=== PATIENT | male | born 1995 | race American Indian/Alaskan Native ===

== ENCOUNTER 2020-05-07 16:41 | Emergency (ER) | payer OTHER ==
[2020-05-07 16:58] VITALS: BP 143/79
[2020-05-07] MEDS ORDERED: predniSONE 20 MG TAB PO ONE (21:28)
[2020-05-07] MEDS ORDERED: IPRATROPIUM/ALBUTEROL SULFATE 3 ML AMPUL.NEB IH ONE (21:28)
--- NOTE | 2020-05-07 22:26 | Emergency Department Report ---
ED Asthma HPI - General Chief Complaint: Adult Asthma Stated Complaint: ASTHMA PUI?: No Time Seen by Provider: 05/07/20 21:15 Source: patient Mode of arrival: Ambulatory Limitations: No Limitations - History of Present Illness Initial Comments: This is a 25-year-old male with a history of asthma presents the ED today with 2 days of dry intermittent coughing and complaining of labored breathing x1 week. Patient states that he is to use albuterol inhaler which is not helping. Patient denies any sick contact. Patient denies fever/chills/shortness of breath. MD Complaint: "asthma attack" -: days(s) (2) Asthma History: childhood onset Severity: mild Context: none known Associated Symptoms: dry cough - Related Data Current Asthma Therapy: inhaled bronchodilator Previous Rx's Medication Instructions Recorded Last Taken Type Albuterol Mdi (or & Nicu Only) 2 puff IH QID PRN #8.5 gram 05/07/20 Unknown Rx [ProAir HFA Inhaler] Benzonatate [Tessalon Perles] 100 mg PO Q8HR #30 capsule 05/07/20 Unknown Rx predniSONE [Deltasone] 20 mg PO QDAY #5 tab 05/07/20 Unknown Rx Allergies Allergy/AdvReac Type Severity Reaction Status Date / Time No Known Allergies Allergy Unverified 05/07/20 16:54 ED Review of Systems ROS: Stated complaint: ASTHMA Other details as noted in HPI Comment: All other systems reviewed and negative ED Past Medical Hx - Past Medical History Hx Asthma: Yes - Surgical History Additional Surgical History: Left shoulder, tonsilectomy, Adenoidectomy - Social History Smoking Status: Never Smoker Substance Use Type: None - Medications Home Medications: Home Medications Medication Instructions Recorded Confirmed Last Taken Type Albuterol Mdi (or & Nicu Only) 2 puff IH QID PRN #8.5 gram 05/07/20 Unknown Rx [ProAir HFA Inhaler] Benzonatate [Tessalon Perles] 100 mg PO Q8HR #30 capsule 05/07/20 Unknown Rx predniSONE [Deltasone] 20 mg PO QDAY #5 tab 05/07/20 Unknown Rx ED Physical Exam - General Limitations: No Limitations General appearance: alert, in no apparent distress - Head Head exam: Present: atraumatic, normocephalic - Eye Eye exam: Present: normal appearance - ENT ENT exam: Present: mucous membranes moist - Neck Neck exam: Present: normal inspection - Respiratory Respiratory exam: Present: normal lung sounds bilaterally. Absent: respiratory distress, wheezes, chest wall tenderness, accessory muscle use - Cardiovascular Cardiovascular Exam: Present: regular rate, normal rhythm. Absent: systolic murmur, diastolic murmur, rubs, gallop - GI/Abdominal GI/Abdominal exam: Present: soft, normal bowel sounds - Rectal Rectal exam: Present: deferred - Extremities Exam Extremities exam: Present: normal inspection - Back Exam Back exam: Present: normal inspection - Neurological Exam Neurological exam: Present: alert, oriented X3 - Psychiatric Psychiatric exam: Present: normal affect, normal mood - Skin Skin exam: Present: warm, dry, intact, normal color. Absent: rash ED Course Vital Signs 05/07/20 16:54 Temperature 98.8 F Pulse Rate 98 H Respiratory 22 Rate Blood Pressure 143/79 O2 Sat by Pulse 95 Oximetry ED Medical Decision Making - Radiology Data Radiology results: report reviewed, image reviewed CHEST 2 VIEWS INDICATION / CLINICAL INFORMATION: Cough, shortness of breath. COMPARISON: None available. FINDINGS: SUPPORT DEVICES: None. HEART / MEDIASTINUM: No significant abnormality. LUNGS / PLEURA: No significant pulmonary or pleural abnormality. No pneumothorax. ADDITIONAL FINDINGS: No significant additional findings. IMPRESSION: 1. No acute findings. Signer Name: Theo Lanza MD Signed: 05/07/2020 10:38 PM Workstation Name: [id number] Transcribed By: SHAVONNE Dictated By: Theo Lanza MD Electronically Authenticated By: Theo Lanza MD Signed Date/Time: 05/07/202237 - Medical Decision Making 25-year-old female presents with asthma exacerbation (Mild) ED course: Patient received a breathing treatment, prednisone, cough suppressant in the ED. Chest x-ray ordered, chest x-ray shows no acute findings. Patient had no respiratory distress in the ED. Post treatment evaluation: No wheezing heard, no use of accessory muscles, I discussed with the patient to follow up with her primary care physician. I discussed with the patient will be going home on with albuterol inhaler as well as nebulizer Vital signs are normalized, patient is saturation at 99% on room air. I discussed with the patient is symptoms worsen to return to ED immediately. Critical care attestation.: If time is entered above; I have spent that time in minutes in the direct care of this critically ill patient, excluding procedure time. ED Disposition Clinical Impression: Asthma exacerbation Disposition: DC-01 TO HOME OR SELFCARE Is pt being admited?: No Does the pt Need Aspirin: No Condition: Stable Instructions: Asthma (ED) Additional Instructions: Make sure to follow up with the primary care physician as discussed. Take all your medications as you've been prescribed. If you have any worsening symptoms or develop new symptoms please return to ED immediately. Prescriptions: predniSONE [Deltasone] 20 mg PO QDAY #5 tab Albuterol Mdi (or & Nicu Only) [ProAir HFA Inhaler] 2 puff IH QID PRN #8.5 gram PRN Reason: Shortness Of Breath Benzonatate [Tessalon Perles] 100 mg PO Q8HR #30 capsule Referrals: PRIMARY CARE, [Primary Care Provider] - 3-5 Days [facility] [Outside] - 3-5 Days [facility] [Outside] - 3-5 Days Forms: Work/School Release Form(ED) Time of Disposition: 23:20
--- NOTE | 2020-05-07 22:42 | XRay Report ---
CHEST 2 VIEWS INDICATION / CLINICAL INFORMATION: Cough, shortness of breath. COMPARISON: None available. FINDINGS: SUPPORT DEVICES: None. HEART / MEDIASTINUM: No significant abnormality. LUNGS / PLEURA: No significant pulmonary or pleural abnormality. No pneumothorax. ADDITIONAL FINDINGS: No significant additional findings. IMPRESSION: 1. No acute findings. Signer Name: Theo Lanza MD Signed: 05/07/2020 10:38 PM Workstation Name: [id number]
== END 2020-05-07 23:30 | disposition home or self-care (01) ==
LOC: ED 16:41
DX: J45.901 Unspecified asthma with (acute) exacerbation (principal); Z79.899 Other long term (current) drug therapy
CPT/HCPCS: 71046; 94640; 99283; J7512

== ENCOUNTER 2020-06-27 21:15 | Emergency (ER) | payer OTHER ==
[2020-06-27] MEDS ORDERED: dexAMETHasone 20 MG/5 ML VIAL IM ONE (21:18)
[2020-06-27] MEDS ORDERED: IPRATROPIUM/ALBUTEROL SULFATE 3 ML AMPUL.NEB IH ONE (21:18)
--- NOTE | 2020-06-27 21:18 | Emergency Department Report ---
Blank Doc - Documentation Documentation: This is a 25-year-old male that presents with asthma exacerbation. This initial assessment/diagnostic orders/clinical plan/treatment(s) is/are subject to change based on patient's health status, clinical progression and re- assessment by fellow clinical providers in the ED. Further treatment and workup at subsequent clinical providers discretion. Patient/guardians urged not to elope from the ED as their condition may be serious if not clinically assessed and managed. Initial orders include: 1- Patient sent to [facility] for further evaluation and treatment 2- breathing treatment
[2020-06-27 21:31] VITALS: BP 153/72
--- NOTE | 2020-06-27 21:48 | Emergency Department Report ---
ED Asthma HPI - General Chief Complaint: Adult Asthma Stated Complaint: DIFFICULTY BREATHING Time Seen by Provider: 06/27/20 21:17 Source: patient Mode of arrival: Ambulatory Limitations: No Limitations - History of Present Illness Initial Comments: Pt is a 25-year-old male with hx of asthma who presents for sob and wheezing x 3 days , states out of albuterol inhaler, there is no fever or chills, pt does endorse sore throat and congestion. Symptoms are rated at 4/10 , symptoms relieved by nothing, pain is exacerbated by environmental exposure. MD Complaint: wheezing - Related Data Previous Rx's Medication Instructions Recorded Last Taken Type Albuterol Mdi (or & Nicu Only) 2 puff IH QID PRN #8.5 gram 05/07/20 Unknown Rx [ProAir HFA Inhaler] Benzonatate [Tessalon Perles] 100 mg PO Q8HR #30 capsule 05/07/20 Unknown Rx predniSONE [Deltasone] 20 mg PO QDAY #5 tab 05/07/20 Unknown Rx Albuterol Mdi (or & Nicu Only) 2 puff IH QID PRN #8.5 gram 06/27/20 Unknown Rx [ProAir HFA Inhaler] Azithromycin 500 mg PO DAILY #5 tablet 06/27/20 Unknown Rx Dexamethasone [Decadron] 6 mg PO BID 3 Days #6 tablet 06/27/20 Unknown Rx Allergies Allergy/AdvReac Type Severity Reaction Status Date / Time No Known Allergies Allergy Unverified 05/07/20 16:54 ED Review of Systems ROS: Stated complaint: DIFFICULTY BREATHING Other details as noted in HPI Constitutional: denies: chills, fever Eyes: denies: eye pain, eye discharge, vision change ENT: denies: ear pain, throat pain Respiratory: cough, shortness of breath, wheezing Cardiovascular: denies: chest pain, palpitations Endocrine: no symptoms reported Gastrointestinal: denies: abdominal pain, nausea, vomiting, diarrhea Genitourinary: denies: urgency, dysuria Musculoskeletal: denies: back pain, joint swelling, arthralgia Skin: denies: rash, lesions Neurological: denies: headache, weakness, paresthesias Psychiatric: denies: anxiety, depression Hematological/Lymphatic: denies: easy bleeding, easy bruising ED Past Medical Hx - Past Medical History Previous Medical History?: Yes Hx Asthma: Yes - Surgical History Past Surgical History?: Yes Additional Surgical History: Left shoulder, tonsilectomy, Adenoidectomy - Social History Smoking Status: Never Smoker Substance Use Type: None - Medications Home Medications: Home Medications Medication Instructions Recorded Confirmed Last Taken Type Albuterol Mdi (or & Nicu Only) 2 puff IH QID PRN #8.5 gram 05/07/20 Unknown Rx [ProAir HFA Inhaler] Benzonatate [Tessalon Perles] 100 mg PO Q8HR #30 capsule 05/07/20 Unknown Rx predniSONE [Deltasone] 20 mg PO QDAY #5 tab 05/07/20 Unknown Rx Albuterol Mdi (or & Nicu Only) 2 puff IH QID PRN #8.5 gram 06/27/20 Unknown Rx [ProAir HFA Inhaler] Azithromycin 500 mg PO DAILY #5 tablet 06/27/20 Unknown Rx Dexamethasone [Decadron] 6 mg PO BID 3 Days #6 tablet 06/27/20 Unknown Rx ED Physical Exam - General Limitations: No Limitations General appearance: alert, in no apparent distress - Head Head exam: Present: atraumatic, normocephalic - Eye Eye exam: Present: normal appearance, EOMI Pupils: Present: normal accommodation - ENT ENT exam: Present: normal orophraynx, mucous membranes moist - Neck Neck exam: Present: normal inspection, full ROM. Absent: tenderness - Respiratory Respiratory exam: Present: wheezes. Absent: rales, rhonchi, stridor, chest wall tenderness, prolonged expiratory - Cardiovascular Cardiovascular Exam: Present: normal rhythm, tachycardia, normal heart sounds. Absent: systolic murmur, diastolic murmur, rubs, gallop - GI/Abdominal GI/Abdominal exam: Present: soft, normal bowel sounds. Absent: distended, tenderness, bruit, hernia - Rectal Rectal exam: Present: deferred - Extremities Exam Extremities exam: Present: normal inspection, full ROM, normal capillary refill. Absent: tenderness - Back Exam Back exam: Present: normal inspection, full ROM. Absent: tenderness, CVA tenderness (R), CVA tenderness (L) - Neurological Exam Neurological exam: Present: alert, oriented X3, CN II-XII intact, normal gait, reflexes normal - Psychiatric Psychiatric exam: Present: normal affect, normal mood - Skin Skin exam: Present: warm, dry, intact, normal color. Absent: rash ED Course Vital Signs 06/27/20 06/27/20 06/27/20 21:24 21:25 21:51 Temperature 99.5 F Pulse Rate 111 H Pulse Rate [ 90 Anterior Bilateral Throughout] Respiratory 18 Rate Respiratory 18 Rate [Anterior Bilateral Throughout] Blood Pressure 153/72 [Left] O2 Sat by Pulse 94 Oximetry - Reevaluation(s) Reevaluation #1: albuterol neb, decadron po, exp wheezes bilat upper lobes. rsp: 30, pt with nad . 06/27/20 21:50 06/27/20 21:50 ED Medical Decision Making - Medical Decision Making Patient now ambulatory in ED from room to bathroom to back to room without increased shortness of breath or wheezing. Symptoms improved, wheezing is resolved at this time. Patient will be DC'd to home with prescriptions. Patient will follow-up with primary care doctor for continued asthma management. Patient verbalizes agreement and understanding with discharge plan. Patient DC'd home in stable condition at this time. Critical care attestation.: If time is entered above; I have spent that time in minutes in the direct care of this critically ill patient, excluding procedure time. ED Disposition Clinical Impression: Asthma Qualifiers: Asthma severity: moderate Asthma persistence: persistent Asthma complication type: with acute exacerbation Qualified Code(s): J45.41 - Moderate persistent asthma with (acute) exacerbation Disposition: DC-01 TO HOME OR SELFCARE Is pt being admited?: No Does the pt Need Aspirin: No Condition: Stable Instructions: Asthma (ED), Asthma, Adult Prescriptions: Azithromycin 500 mg PO DAILY #5 tablet Dexamethasone [Decadron] 6 mg PO BID 3 Days #6 tablet Albuterol Mdi (or & Nicu Only) [ProAir HFA Inhaler] 2 puff IH QID PRN #8.5 gram PRN Reason: Shortness Of Breath Referrals: PORTER DAMIAN MD [Primary Care Provider] - 3-5 Days MECHE URBAN MD [Referring] - 3-5 Days Forms: Work/School Release Form(ED) Time of Disposition: 22:49
== END 2020-06-27 22:55 | disposition home or self-care (01) ==
LOC: ED 21:15
DX: J45.909 Unspecified asthma, uncomplicated (principal); Z90.89 Acquired absence of other organs; Z98.890 Other specified postprocedural states; Z79.899 Other long term (current) drug therapy
CPT/HCPCS: 94640; 96372; 99282; J1100; 94644

== ENCOUNTER 2020-08-22 23:29 | Emergency (ER) | payer SELFPAY ==
[2020-08-23] MEDS ORDERED: IPRATROPIUM/ALBUTEROL SULFATE 3 ML AMPUL.NEB IH ONE (00:39)
[2020-08-23] MEDS ORDERED: predniSONE 20 MG TAB PO ONE (00:39)
[2020-08-23] MEDS ORDERED: ALBUTEROL 2.5 MG/3 ML NEBU IH ONE (00:40)
[2020-08-23 00:48] VITALS: BP 117/69
--- NOTE | 2020-08-23 01:15 | Emergency Department Report ---
ED Shortness of Breath HPI - General Chief Complaint: Adult Asthma Stated Complaint: ASTHMA Source: patient Mode of arrival: Ambulatory Limitations: No Limitations - History of Present Illness Initial Comments: Patient is a 25-year-old -Hond[place] male with a history of obesity and asthma who presents to the ED with acute onset persistent shortness of breath, wheezing, persistent dry cough for the last 2 days. Patient states that he did not of his albuterol inhaler while on a trip to [place] with family. Patient states that his shortness of breath got worse about 2 hours ago while he was preparing go to sleep. Patient denies chest pain, dizziness, syncope, fever, chills, nasal and sinus congestion, sore throat, abdominal pain, change in vision, palpitations, nausea, vomiting and diarrhea. MD Complaint: shortness of breath, cough, "asthma attack" -: Sudden, days(s) (2) Radiation: back Pain Scale: 5 Quality: aching Consistency: intermittent Improves With: nothing Worsens With: nothing, coughing Known History Of: asthma Context: medication noncompliance Associated Symptoms: denies other symptoms, cough, sputum production Treatments Prior to Arrival: bronchodilator - Related Data Home Oxygen Therapy: No Previous Rx's Medication Instructions Recorded Last Taken Type Albuterol Mdi (or & Nicu Only) 2 puff IH QID PRN #8.5 gram 05/07/20 Unknown Rx [ProAir HFA Inhaler] Benzonatate [Tessalon Perles] 100 mg PO Q8HR #30 capsule 05/07/20 Unknown Rx predniSONE [Deltasone] 20 mg PO QDAY #5 tab 05/07/20 Unknown Rx Azithromycin 500 mg PO DAILY #5 tablet 06/27/20 Unknown Rx Dexamethasone [Decadron] 6 mg PO BID 3 Days #6 tablet 06/27/20 Unknown Rx ALBUTEROL NEB's [Proventil 0.083% 3 ml IH Q6H PRN #75 ml 08/23/20 Unknown Rx NEBS] Albuterol Mdi (or & Nicu Only) 2 puff IH QID PRN #8.5 gram 08/23/20 Unknown Rx [ProAir HFA Inhaler] Benzonatate [Tessalon Perles] 100 mg PO Q8HR #30 capsule 08/23/20 Unknown Rx methylPREDNISolone [Medrol 4MG 4 mg PO DAILY #21 tab.ds.pk 08/23/20 Unknown Rx DOSEPAK (21 tabs)] Allergies Allergy/AdvReac Type Severity Reaction Status Date / Time No Known Allergies Allergy Unverified 05/07/20 16:54 ED Review of Systems ROS: Stated complaint: ASTHMA Other details as noted in HPI Constitutional: denies: chills, fever Eyes: denies: eye pain, eye discharge, vision change ENT: denies: ear pain, throat pain Respiratory: cough, shortness of breath, wheezing Cardiovascular: denies: chest pain, palpitations Endocrine: no symptoms reported Gastrointestinal: denies: abdominal pain, nausea, diarrhea Genitourinary: denies: urgency, dysuria Musculoskeletal: denies: back pain, joint swelling, arthralgia Skin: denies: rash, lesions Neurological: denies: headache, weakness, paresthesias Psychiatric: denies: anxiety, depression Hematological/Lymphatic: denies: easy bleeding, easy bruising ED Past Medical Hx - Past Medical History Previous Medical History?: Yes Hx Asthma: Yes - Surgical History Past Surgical History?: Yes Additional Surgical History: Left shoulder, tonsilectomy, Adenoidectomy - Social History Smoking Status: Never Smoker Substance Use Type: None - Medications Home Medications: Home Medications Medication Instructions Recorded Confirmed Last Taken Type Albuterol Mdi (or & Nicu Only) 2 puff IH QID PRN #8.5 gram 05/07/20 Unknown Rx [ProAir HFA Inhaler] Benzonatate [Tessalon Perles] 100 mg PO Q8HR #30 capsule 05/07/20 Unknown Rx predniSONE [Deltasone] 20 mg PO QDAY #5 tab 05/07/20 Unknown Rx Azithromycin 500 mg PO DAILY #5 tablet 06/27/20 Unknown Rx Dexamethasone [Decadron] 6 mg PO BID 3 Days #6 tablet 06/27/20 Unknown Rx ALBUTEROL NEB's [Proventil 0.083% 3 ml IH Q6H PRN #75 ml 08/23/20 Unknown Rx NEBS] Albuterol Mdi (or & Nicu Only) 2 puff IH QID PRN #8.5 gram 08/23/20 Unknown Rx [ProAir HFA Inhaler] Benzonatate [Tessalon Perles] 100 mg PO Q8HR #30 capsule 08/23/20 Unknown Rx methylPREDNISolone [Medrol 4MG 4 mg PO DAILY #21 tab.ds.pk 08/23/20 Unknown Rx DOSEPAK (21 tabs)] ED Physical Exam - General Limitations: No Limitations General appearance: alert, in no apparent distress - Head Head exam: Present: atraumatic, normocephalic, normal inspection - Eye Eye exam: Present: normal appearance, PERRL, EOMI Pupils: Present: normal accommodation - ENT ENT exam: Present: normal exam, normal orophraynx, mucous membranes moist, TM's normal bilaterally, normal external ear exam - Neck Neck exam: Present: normal inspection, full ROM - Respiratory Respiratory exam: Present: normal lung sounds bilaterally, wheezes (Mildly diffuse coarse wheezes throughout). Absent: respiratory distress, chest wall tenderness, accessory muscle use, decreased breath sounds - Cardiovascular Cardiovascular Exam: Present: regular rate, normal rhythm, normal heart sounds. Absent: systolic murmur, diastolic murmur, rubs, gallop - GI/Abdominal GI/Abdominal exam: Present: soft, normal bowel sounds. Absent: distended, tenderness, guarding, hyperactive bowel sounds, hypoactive bowel sounds, organomegaly - Extremities Exam Extremities exam: Present: normal inspection, full ROM, normal capillary refill. Absent: pedal edema, joint swelling, calf tenderness - Back Exam Back exam: Present: normal inspection, full ROM. Absent: tenderness, CVA tenderness (R), CVA tenderness (L), muscle spasm, paraspinal tenderness - Neurological Exam Neurological exam: Present: alert, oriented X3, CN II-XII intact, normal gait, reflexes normal - Psychiatric Psychiatric exam: Present: normal affect, normal mood - Skin Skin exam: Present: warm, dry, intact, normal color. Absent: rash ED Course Vital Signs 08/23/20 08/23/20 00:38 01:03 Temperature 98.3 F Pulse Rate 95 H Pulse Rate [ 96 H Bilateral] Respiratory 20 Rate Respiratory 20 Rate [Bilateral ] Blood Pressure 117/69 O2 Sat by Pulse 97 Oximetry ED Medical Decision Making - Radiology Data Radiology results: report reviewed, image reviewed Findings [facility] [address] [place] [address] XRay Report Signed Patient: DENISE KEBEDE MR#: [id number] : 1995 Acct:[id number] Age/Sex: 25 / M ADM Date: 08/22/20 Loc: ED Attending Dr: Ordering Physician: URIEL PEREZ Date of Service: 08/23/20 Procedure(s): XR chest 1V ap Accession Number(s): [id number] cc: URIEL PEREZ Fluoro Time In Minutes: CHEST 1 VIEW INDICATION / CLINICAL INFORMATION: Cough, dyspnea. COMPARISON: 05/07/2020 FINDINGS: SUPPORT DEVICES: None. HEART / MEDIASTINUM: No significant abnormality. LUNGS / PLEURA: Interstitial markings are slightly prominent bilaterally but unchanged from prior exam. No areas of consolidation or pleural effusion.. No pneumothorax. ADDITIONAL FINDINGS: No significant additional findings. IMPRESSION: 1. Slight interstitial prominence bilaterally which appears to be chronic. 2. No acute pulmonary disease or significant interval change. Signer Name: Celeste Tucker MD Signed: 08/23/2020 1:10 AM Workstation Name: [id number] Transcribed By: Dictated By: Celeste Tucker MD Electronically Authenticated By: Celeste Tucker MD Signed Date/Time: 08/23/20109 DD/ 8 TD/TT: - Medical Decision Making This is a 25-year-old -Honduran male with a history of obesity and asthma who presents to the ED with acute onset persistent shortness of breath, wheezing, persistent dry cough for the last 2 days. Patient states that he did not of his albuterol inhaler while on a trip to [place] with family. Patient states that his shortness of breath got worse about 2 hours ago while he was preparing go to sleep. In the ED, patient is alert and oriented x3 and is not in any distress. Chest x-ray shows no acute cardiopulmonary abnormalities or pneumonitis. Patient received DuoNeb treatment and albuterol nebulizer treatment in the ED in addition to oral steroids prednisone. On reevaluation, patient's wheezing resolved medications. Patient oxygen saturation is 99% in room air. Patient will discharge home on medications with a refill of his nebulizers and steroids. Patient was advised to follow-up with his primary care physician in 3 to 5 days for reevaluation. Patient was also advised return to the ED immediately if symptoms get worse. - Differential Diagnosis asthma; bronchitis; pneumonia; URI Critical care attestation.: If time is entered above; I have spent that time in minutes in the direct care of this critically ill patient, excluding procedure time. ED Disposition Clinical Impression: Shortness of breath Asthmatic bronchitis with acute exacerbation Qualifiers: Asthma severity: mild Asthma persistence: intermittent Qualified Code(s): J45.21 - Mild intermittent asthma with (acute) exacerbation Disposition: TO HOME OR SELFCARE Is pt being admited?: No Does the pt Need Aspirin: No Condition: Stable Instructions: Shortness of Breath, Adult, [id number], Cough, Adult, [id number], Asthma, Adult, [id number] Additional Instructions: Chest x-ray shows no acute cardiopulmonary abnormalities or pneumonitis. Therefore take medications as advised, drink plenty of fluids and follow-up with your primary care physician in 7 to 10 days for reevaluation. Return to the ED immediately if symptoms get worse Prescriptions: methylPREDNISolone [Medrol 4MG DOSEPAK (21 tabs)] 4 mg PO DAILY #21 tab.ds.pk Albuterol Mdi (or & Nicu Only) [ProAir HFA Inhaler] 2 puff IH QID PRN #8.5 gram PRN Reason: Shortness Of Breath ALBUTEROL NEB's [Proventil 0.083% NEBS] 3 ml IH Q6H PRN #75 ml PRN Reason: Wheezing Benzonatate [Tessalon Perles] 100 mg PO Q8HR #30 capsule Referrals: [facility] [Provider Group] - 3-5 Days Time of Disposition: 02:00 Print Language: [place] CITIZ[place]
== END 2020-08-23 02:34 | disposition home or self-care (01) ==
LOC: ED 23:29
DX: J45.901 Unspecified asthma with (acute) exacerbation (principal); Z98.890 Other specified postprocedural states; Z79.899 Other long term (current) drug therapy
CPT/HCPCS: 71045; 94640; 99283; J7512; 94644

== ENCOUNTER 2020-09-18 09:38 | Emergency (ER) | payer OTHER ==
--- NOTE | 2020-09-18 09:53 | Emergency Department Report ---
ED Asthma HPI - General Stated Complaint: ASTHMA Time Seen by Provider: 09/18/20 09:48 - History of Present Illness Initial Comments: 25-year-old -[place] male presents to the emergency room reporting he is have asthma has been exacerbated for the last 2 weeks. Patient states is been using his inhaler which helps but it comes back. Patient denies any fever chills no chest pain. He does admit to chest congestion and mild shortness of breath. Patient states that he lives with people who smoke weed and cigarettes and that was part of his triggers. Patient states that he has been out of his nebulizer solution. Onset/Timin -: week(s) Asthma History: childhood onset Severity: mild Context: smoke exposure Associated Symptoms: denies: fever, chest pain, leg edema Treatments Prior to Arrival: inhaled bronchodilator - Related Data Current Asthma Therapy: inhaled bronchodilator Previous Rx's Medication Instructions Recorded Last Taken Type Albuterol Mdi (or & Nicu Only) 2 puff IH QID PRN #8.5 gram 05/07/20 Unknown Rx [ProAir HFA Inhaler] Benzonatate [Tessalon Perles] 100 mg PO Q8HR #30 capsule 05/07/20 Unknown Rx Azithromycin 500 mg PO DAILY #5 tablet 06/27/20 Unknown Rx Dexamethasone [Decadron] 6 mg PO BID 3 Days #6 tablet 06/27/20 Unknown Rx Benzonatate [Tessalon Perles] 100 mg PO Q8HR #30 capsule 08/23/20 Unknown Rx methylPREDNISolone [Medrol 4MG 4 mg PO DAILY #21 tab.ds.pk 08/23/20 Unknown Rx DOSEPAK (21 tabs)] ALBUTEROL NEB's [Proventil 0.083% 3 ml IH Q6H PRN #75 ml 09/18/20 Unknown Rx NEBS] Albuterol Mdi (or & Nicu Only) 2 puff IH QID PRN #8.5 gram 09/18/20 Unknown Rx [ProAir HFA Inhaler] predniSONE [Deltasone] 20 mg PO QDAY #5 tab 09/18/20 Unknown Rx Allergies Allergy/AdvReac Type Severity Reaction Status Date / Time No Known Allergies Allergy Unverified 05/07/20 16:54 ED Review of Systems ROS: Stated complaint: ASTHMA Other details as noted in HPI Comment: All other systems reviewed and negative ED Past Medical Hx - Past Medical History Hx Asthma: Yes - Surgical History Additional Surgical History: Left shoulder, tonsilectomy, Adenoidectomy - Social History Smoking Status: Never Smoker Substance Use Type: None - Medications Home Medications: Home Medications Medication Instructions Recorded Confirmed Last Taken Type Albuterol Mdi (or & Nicu Only) 2 puff IH QID PRN #8.5 gram 05/07/20 Unknown Rx [ProAir HFA Inhaler] Benzonatate [Tessalon Perles] 100 mg PO Q8HR #30 capsule 05/07/20 Unknown Rx Azithromycin 500 mg PO DAILY #5 tablet 06/27/20 Unknown Rx Dexamethasone [Decadron] 6 mg PO BID 3 Days #6 tablet 06/27/20 Unknown Rx Benzonatate [Tessalon Perles] 100 mg PO Q8HR #30 capsule 08/23/20 Unknown Rx methylPREDNISolone [Medrol 4MG 4 mg PO DAILY #21 tab.ds.pk 08/23/20 Unknown Rx DOSEPAK (21 tabs)] ALBUTEROL NEB's [Proventil 0.083% 3 ml IH Q6H PRN #75 ml 09/18/20 Unknown Rx NEBS] Albuterol Mdi (or & Nicu Only) 2 puff IH QID PRN #8.5 gram 09/18/20 Unknown Rx [ProAir HFA Inhaler] predniSONE [Deltasone] 20 mg PO QDAY #5 tab 09/18/20 Unknown Rx ED Physical Exam - General General appearance: alert, in no apparent distress - Head Head exam: Present: atraumatic, normocephalic - Eye Eye exam: Present: normal appearance - ENT ENT exam: Present: mucous membranes moist - Neck Neck exam: Present: normal inspection - Respiratory Respiratory exam: Present: normal lung sounds bilaterally. Absent: respiratory distress - Cardiovascular Cardiovascular Exam: Present: regular rate, normal rhythm. Absent: systolic murmur, diastolic murmur, rubs, gallop - GI/Abdominal GI/Abdominal exam: Present: soft, normal bowel sounds - Rectal Rectal exam: Present: deferred - Extremities Exam Extremities exam: Present: normal inspection - Back Exam Back exam: Present: normal inspection - Neurological Exam Neurological exam: Present: alert, oriented X3 - Psychiatric Psychiatric exam: Present: normal affect, normal mood - Skin Skin exam: Present: warm, dry, intact, normal color. Absent: rash ED Medical Decision Making - Medical Decision Making 25-year-old -[place] male presents to the emergency room reporting he is have asthma has been exacerbated for the last 2 weeks. Patient states is been using his inhaler which helps but it comes back. Patient denies any fever chills no chest pain. He does admit to chest congestion and mild shortness of breath. Patient states that he lives with people who smoke weed and cigarettes and that was part of his triggers. Patient states that he has been out of his nebulizer solution. Patient lung exam is within normal limits no wheezing or shortness of breath marky reciated. Patient be discharged home with a prescription for prednisone, nebulizer solution and a refill on his inhaler. Critical care attestation.: If time is entered above; I have spent that time in minutes in the direct care of this critically ill patient, excluding procedure time. ED Disposition Clinical Impression: Asthma Disposition: DC-01 TO HOME OR SELFCARE Is pt being admited?: No Does the pt Need Aspirin: No Condition: Stable Instructions: Asthma (ED), Asthma, Adult, [id number] Additional Instructions: Please complete your prednisone as prescribed. Use your nebulizer and inhaler as needed. Follow-up with your primary care provider. Prescriptions: predniSONE [Deltasone] 20 mg PO QDAY #5 tab Albuterol Mdi (or & Nicu Only) [ProAir HFA Inhaler] 2 puff IH QID PRN #8.5 gram PRN Reason: Shortness Of Breath ALBUTEROL NEB's [Proventil 0.083% NEBS] 3 ml IH Q6H PRN #75 ml PRN Reason: Wheezing Referrals: SITA ESTRADA MD [Staff Physician] - 3-5 Days Forms: Work/School Release Form(ED)
[2020-09-18 10:03] VITALS: BP 143/66
== END 2020-09-18 10:00 | disposition home or self-care (01) ==
LOC: ED 09:38
DX: J45.909 Unspecified asthma, uncomplicated (principal); Z90.89 Acquired absence of other organs; Z98.890 Other specified postprocedural states; Z79.2 Long term (current) use of antibiotics; Z79.899 Other long term (current) drug therapy
CPT/HCPCS: 99282

== ENCOUNTER 2020-09-27 00:01 | Emergency (ER) | payer OTHER ==
[2020-09-27] MEDS ORDERED: predniSONE 20 MG TAB PO ONE (00:40)
[2020-09-27] MEDS ORDERED: ALBUTEROL 2.5 MG/3 ML NEBU IH ONE (00:40)
--- NOTE | 2020-09-27 00:45 | Emergency Department Report ---
ED General Adult HPI - General Chief complaint: Adult Asthma Stated complaint: ALESSANDRA Source: patient Mode of arrival: Ambulatory Limitations: No Limitations - History of Present Illness Initial comments: pt is a 25 male who presents for wheezing and sob x 1 days, pt states hx of asthma , symptoms improve wtih albuterol nebulizer. pt denies cp, no diaphresis, pt no fever or chill, - Related Data Previous Rx's Medication Instructions Recorded Last Taken Type Albuterol Mdi (or & Nicu Only) 2 puff IH QID PRN #8.5 gram 05/07/20 Unknown Rx [ProAir HFA Inhaler] Benzonatate [Tessalon Perles] 100 mg PO Q8HR #30 capsule 05/07/20 Unknown Rx Azithromycin 500 mg PO DAILY #5 tablet 06/27/20 Unknown Rx Dexamethasone [Decadron] 6 mg PO BID 3 Days #6 tablet 06/27/20 Unknown Rx Benzonatate [Tessalon Perles] 100 mg PO Q8HR #30 capsule 08/23/20 Unknown Rx methylPREDNISolone [Medrol 4MG 4 mg PO DAILY #21 tab.ds.pk 08/23/20 Unknown Rx DOSEPAK (21 tabs)] ALBUTEROL NEB's [Proventil 0.083% 3 ml IH Q6H PRN #75 ml 09/18/20 Unknown Rx NEBS] Albuterol Mdi (or & Nicu Only) 2 puff IH QID PRN #8.5 gram 09/18/20 Unknown Rx [ProAir HFA Inhaler] predniSONE [Deltasone] 20 mg PO QDAY #5 tab 09/18/20 Unknown Rx Albuterol Mdi (or & Nicu Only) 2 puff IH QID PRN #8.5 gram 09/27/20 Unknown Rx [ProAir HFA Inhaler] predniSONE [Deltasone] 40 mg PO QDAY 5 Days #10 tab 09/27/20 Unknown Rx Allergies Allergy/AdvReac Type Severity Reaction Status Date / Time No Known Allergies Allergy Unverified 05/07/20 16:54 ED Review of Systems ROS: Stated complaint: ALESSANDRA Other details as noted in HPI Constitutional: denies: chills, fever Eyes: denies: eye pain, eye discharge, vision change ENT: as per HPI Respiratory: denies: cough, shortness of breath, wheezing Cardiovascular: denies: chest pain, palpitations Endocrine: no symptoms reported Gastrointestinal: as per HPI. denies: nausea, vomiting Genitourinary: denies: urgency, dysuria Musculoskeletal: denies: back pain, joint swelling, arthralgia Skin: denies: rash, lesions Neurological: denies: headache, weakness, paresthesias Psychiatric: denies: anxiety, depression Hematological/Lymphatic: denies: easy bleeding, easy bruising ED Past Medical Hx - Past Medical History Previous Medical History?: Yes Hx Asthma: Yes - Surgical History Past Surgical History?: Yes Additional Surgical History: Left shoulder, tonsilectomy, Adenoidectomy - Social History Smoking Status: Never Smoker Substance Use Type: Alcohol - Medications Home Medications: Home Medications Medication Instructions Recorded Confirmed Last Taken Type Albuterol Mdi (or & Nicu Only) 2 puff IH QID PRN #8.5 gram 05/07/20 Unknown Rx [ProAir HFA Inhaler] Benzonatate [Tessalon Perles] 100 mg PO Q8HR #30 capsule 05/07/20 Unknown Rx Azithromycin 500 mg PO DAILY #5 tablet 06/27/20 Unknown Rx Dexamethasone [Decadron] 6 mg PO BID 3 Days #6 tablet 06/27/20 Unknown Rx Benzonatate [Tessalon Perles] 100 mg PO Q8HR #30 capsule 08/23/20 Unknown Rx methylPREDNISolone [Medrol 4MG 4 mg PO DAILY #21 tab.ds.pk 08/23/20 Unknown Rx DOSEPAK (21 tabs)] ALBUTEROL NEB's [Proventil 0.083% 3 ml IH Q6H PRN #75 ml 09/18/20 Unknown Rx NEBS] Albuterol Mdi (or & Nicu Only) 2 puff IH QID PRN #8.5 gram 09/18/20 Unknown Rx [ProAir HFA Inhaler] predniSONE [Deltasone] 20 mg PO QDAY #5 tab 09/18/20 Unknown Rx Albuterol Mdi (or & Nicu Only) 2 puff IH QID PRN #8.5 gram 09/27/20 Unknown Rx [ProAir HFA Inhaler] predniSONE [Deltasone] 40 mg PO QDAY 5 Days #10 tab 09/27/20 Unknown Rx ED Physical Exam - General Limitations: No Limitations General appearance: alert, in no apparent distress - Head Head exam: Present: atraumatic, normocephalic - Eye Eye exam: Present: normal appearance, PERRL, EOMI Pupils: Present: normal accommodation - ENT ENT exam: Present: mucous membranes moist - Neck Neck exam: Present: normal inspection - Respiratory Respiratory exam: Present: normal lung sounds bilaterally, wheezes, rales, rhonchi, stridor, chest wall tenderness (anterior ). Absent: respiratory distress - Cardiovascular Cardiovascular Exam: Present: regular rate, normal rhythm. Absent: systolic murmur, diastolic murmur, rubs, gallop - GI/Abdominal GI/Abdominal exam: Present: soft, normal bowel sounds. Absent: distended, tenderness - Rectal Rectal exam: Present: deferred - Extremities Exam Extremities exam: Present: normal inspection - Back Exam Back exam: Present: full ROM, tenderness. Absent: normal inspection, CVA tenderness (R), CVA tenderness (L) - Neurological Exam Neurological exam: Present: alert, oriented X3, CN II-XII intact, normal gait - Psychiatric Psychiatric exam: Present: normal affect, normal mood - Skin Skin exam: Present: warm, dry, intact, normal color. Absent: rash ED Course Vital Signs 09/27/20 09/27/20 00:38 01:25 Temperature 98.2 F Pulse Rate 100 H Pulse Rate [ 100 H Bilateral] Respiratory 16 Rate Respiratory 22 Rate [Bilateral ] Blood Pressure 131/52 O2 Sat by Pulse 97 Oximetry ED Medical Decision Making - Radiology Data Radiology results: report reviewed, image reviewed no infiltrate no opacities - Medical Decision Making Symptoms are resolved after nebulizer treatment given in ED. Chest x-ray is normal no infiltrates no opacities. Plan DC to home will refill albuterol inhaler. Patient will follow up with primary care doctor in 2 to 3 days. Patient verbalized agreement and understanding with discharge plan. Patient DC' d home in stable condition at this time. Critical care attestation.: If time is entered above; I have spent that time in minutes in the direct care of this critically ill patient, excluding procedure time. ED Disposition Clinical Impression: Asthma Qualifiers: Asthma severity: mild Asthma persistence: intermittent Asthma complication type: with acute exacerbation Qualified Code(s): J45.21 - Mild intermittent asthma with (acute) exacerbation Disposition: DC-01 TO HOME OR SELFCARE Is pt being admited?: No Does the pt Need Aspirin: No Condition: Stable Instructions: Asthma (ED), Asthma, Adult Prescriptions: predniSONE [Deltasone] 40 mg PO QDAY 5 Days #10 tab Albuterol Mdi (or & Nicu Only) [ProAir HFA Inhaler] 2 puff IH QID PRN #8.5 gram PRN Reason: Shortness Of Breath Forms: Work/School Release Form(ED) Time of Disposition: 02:16
--- NOTE | 2020-09-27 01:15 | XRay Report ---
CHEST 2 VIEWS INDICATION / CLINICAL INFORMATION: sob. COMPARISON: 08/23/2020 FINDINGS: SUPPORT DEVICES: None. HEART / MEDIASTINUM: No significant abnormality. LUNGS / PLEURA: No significant pulmonary or pleural abnormality. No pneumothorax. ADDITIONAL FINDINGS: No significant additional findings. IMPRESSION: 1. No acute findings. Signer Name: Claude Zeng MD Signed: 09/27/2020 1:10 AM Workstation Name: [email or web address]
[2020-09-27 02:33] VITALS: BP 136/61
== END 2020-09-27 02:32 | disposition home or self-care (01) ==
LOC: ED 00:01
DX: J45.909 Unspecified asthma, uncomplicated (principal); Z90.89 Acquired absence of other organs; Z98.890 Other specified postprocedural states; Z79.2 Long term (current) use of antibiotics; Z79.899 Other long term (current) drug therapy
CPT/HCPCS: 71046; 94640; 99283; J7512; 94644

== ENCOUNTER 2021-03-02 16:26 | Emergency (ER) | payer OTHER ==
[2021-03-02 19:54] VITALS: BP 156/85
[2021-03-02] MEDS ORDERED: IPRATROPIUM 0.02% NEBU 2.5 ML IH ONE (20:02)
[2021-03-02] MEDS ORDERED: methylPREDNISolone Sod Succinate 125 MG/2 ML INJ IM ONE (20:02)
[2021-03-02] MEDS ORDERED: ALBUTEROL 2.5 MG/3 ML NEBU IH ONE (20:02)
--- NOTE | 2021-03-02 20:31 | XRay Report ---
CHEST 2 VIEWS INDICATION / CLINICAL INFORMATION: Dyspnea, asthma. COMPARISON: None available. FINDINGS: SUPPORT DEVICES: None. HEART / MEDIASTINUM: No significant abnormality. LUNGS / PLEURA: No significant pulmonary or pleural abnormality. No pneumothorax. ADDITIONAL FINDINGS: No significant additional findings. IMPRESSION: 1. No acute findings. Signer Name: Rashi Pendleton MD Signed: 03/02/2021 8:26 PM Workstation Name: [id number]
--- NOTE | 2021-03-02 20:55 | Emergency Department Report ---
ED Shortness of Breath HPI - General Chief Complaint: Adult Asthma Stated Complaint: ASTHMA Source: patient Mode of arrival: Ambulatory Limitations: No Limitations - History of Present Illness Initial Comments: Patient is a 26-year-old -[place] male with a history of asthma presents to the ED with acute onset persistent shortness of breath, persistent dry cough and sore throat for the last 2 days. Patient states that he has been using his albuterol inhaler at home up to about 6 hours ago when he ran out of his medication. Patient states that his symptoms were triggered by cigarette smoking at home where his girlfriend smokes cigarettes. Patient states that the shortness of breath, wheezing, chest tightness and dry cough got worse in the last 2 hours. Patient denies fever, chills, nausea, vomiting, dizziness, syncope, diarrhea, nasal and sinus congestion, abdominal pain, headache, back pain, dysuria, urinary frequency and urgency or palpitations. MD Complaint: shortness of breath, cough, "asthma attack" -: Sudden, days(s) (2) Severity: moderate Pain Scale: 5 Quality: other (Chest tightness) Consistency: constant Improves With: bronchodilators Known History Of: asthma Context: recent URI, allergen exposure (Cigarette smoke), smoke/fume exposure (Cigarette smoke) Associated Symptoms: cough Treatments Prior to Arrival: bronchodilator (Albuterol inhaler) - Related Data Home Oxygen Therapy: No Previous Rx's Medication Instructions Recorded Last Taken Type Albuterol Mdi (or & Nicu Only) 2 puff IH QID PRN #8.5 gram 05/07/20 Unknown Rx [ProAir HFA Inhaler] Benzonatate [Tessalon Perles] 100 mg PO Q8HR #30 capsule 05/07/20 Unknown Rx Azithromycin 500 mg PO DAILY #5 tablet 06/27/20 Unknown Rx Dexamethasone [Decadron] 6 mg PO BID 3 Days #6 tablet 06/27/20 Unknown Rx ALBUTEROL NEB's [Proventil 0.083% 3 ml IH Q6H PRN #75 ml 09/18/20 Unknown Rx NEBS] Albuterol Mdi (or & Nicu Only) 2 puff IH QID PRN #8.5 gram 09/18/20 Unknown Rx [ProAir HFA Inhaler] predniSONE [Deltasone] 20 mg PO QDAY #5 tab 09/18/20 Unknown Rx predniSONE [Deltasone] 40 mg PO QDAY 5 Days #10 tab 09/27/20 Unknown Rx Albuterol Mdi (or & Nicu Only) 2 puff IH QID PRN #8.5 gram 03/02/21 Unknown Rx [ProAir HFA Inhaler] Benzonatate [Tessalon Perles] 100 mg PO Q8HR #30 capsule 03/02/21 Unknown Rx Montelukast [Singulair] 10 mg PO QPM #30 tablet 03/02/21 Unknown Rx methylPREDNISolone [Medrol 4MG 4 mg PO DAILY #21 tab.ds.pk 03/02/21 Unknown Rx DOSEPAK (21 tabs)] Allergies Allergy/AdvReac Type Severity Reaction Status Date / Time No Known Allergies Allergy Unverified 05/07/20 16:54 ED Review of Systems ROS: Stated complaint: ASTHMA Other details as noted in HPI Constitutional: denies: chills, fever Eyes: denies: eye pain, eye discharge, vision change ENT: throat pain. denies: ear pain Respiratory: cough, shortness of breath, wheezing Cardiovascular: denies: chest pain, palpitations Endocrine: no symptoms reported Gastrointestinal: denies: abdominal pain, nausea, vomiting, diarrhea Genitourinary: denies: urgency, dysuria Musculoskeletal: denies: back pain, joint swelling, arthralgia Skin: denies: rash, lesions Neurological: denies: headache, weakness, paresthesias Psychiatric: denies: anxiety, depression Hematological/Lymphatic: denies: easy bleeding, easy bruising ED Past Medical Hx - Past Medical History Hx Asthma: Yes - Surgical History Additional Surgical History: Left shoulder, tonsilectomy, Adenoidectomy - Social History Smoking Status: Never Smoker Substance Use Type: None - Medications Home Medications: Home Medications Medication Instructions Recorded Confirmed Last Taken Type Albuterol Mdi (or & Nicu Only) 2 puff IH QID PRN #8.5 gram 05/07/20 Unknown Rx [ProAir HFA Inhaler] Benzonatate [Tessalon Perles] 100 mg PO Q8HR #30 capsule 05/07/20 Unknown Rx Azithromycin 500 mg PO DAILY #5 tablet 06/27/20 Unknown Rx Dexamethasone [Decadron] 6 mg PO BID 3 Days #6 tablet 06/27/20 Unknown Rx ALBUTEROL NEB's [Proventil 0.083% 3 ml IH Q6H PRN #75 ml 09/18/20 Unknown Rx NEBS] Albuterol Mdi (or & Nicu Only) 2 puff IH QID PRN #8.5 gram 09/18/20 Unknown Rx [ProAir HFA Inhaler] predniSONE [Deltasone] 20 mg PO QDAY #5 tab 09/18/20 Unknown Rx predniSONE [Deltasone] 40 mg PO QDAY 5 Days #10 tab 09/27/20 Unknown Rx Albuterol Mdi (or & Nicu Only) 2 puff IH QID PRN #8.5 gram 03/02/21 Unknown Rx [ProAir HFA Inhaler] Benzonatate [Tessalon Perles] 100 mg PO Q8HR #30 capsule 03/02/21 Unknown Rx Montelukast [Singulair] 10 mg PO QPM #30 tablet 03/02/21 Unknown Rx methylPREDNISolone [Medrol 4MG 4 mg PO DAILY #21 tab.ds.pk 03/02/21 Unknown Rx DOSEPAK (21 tabs)] ED Physical Exam - General Limitations: No Limitations General appearance: alert, in no apparent distress - Head Head exam: Present: atraumatic, normocephalic, normal inspection - Eye Eye exam: Present: normal appearance, PERRL, EOMI Pupils: Present: normal accommodation - ENT ENT exam: Present: normal exam, normal orophraynx, mucous membranes moist, TM's normal bilaterally, normal external ear exam - Neck Neck exam: Present: normal inspection, full ROM - Respiratory Respiratory exam: Present: wheezes (Mildly diffuse coarse wheezes throughout). Absent: respiratory distress, rales, rhonchi, chest wall tenderness, accessory muscle use, decreased breath sounds, prolonged expiratory - Cardiovascular Cardiovascular Exam: Present: regular rate, normal rhythm, normal heart sounds. Absent: systolic murmur, diastolic murmur, rubs, gallop - GI/Abdominal GI/Abdominal exam: Present: soft, normal bowel sounds. Absent: tenderness, guarding, rebound, hyperactive bowel sounds, hypoactive bowel sounds - Extremities Exam Extremities exam: Present: normal inspection, full ROM, normal capillary refill - Back Exam Back exam: Present: normal inspection, full ROM. Absent: tenderness, CVA tenderness (R), CVA tenderness (L), muscle spasm, paraspinal tenderness, vertebral tenderness - Neurological Exam Neurological exam: Present: alert, oriented X3, CN II-XII intact, normal gait, reflexes normal - Psychiatric Psychiatric exam: Present: normal affect, normal mood - Skin Skin exam: Present: warm, dry, intact, normal color. Absent: rash ED Course Vital Signs 03/02/21 03/02/21 19:50 20:45 Temperature 98.4 F Pulse Rate 94 H Pulse Rate [ 86 Anterior Bilateral Throughout] Respiratory 18 Rate Respiratory 20 Rate [Anterior Bilateral Throughout] Blood Pressure 156/85 O2 Sat by Pulse 90 Oximetry ED Medical Decision Making - Radiology Data Radiology results: report reviewed, image reviewed [facility] [address] [place] [address] XRay Report Signed Patient: DENISE KEBEDE MR#: [id number] : 1995 Acct:[id number] Age/Sex: 26 / M ADM Date: 03/02/21 Loc: ED Attending Dr: Ordering Physician: URIEL PEREZ Date of Service: 03/02/21 Procedure(s): XR chest routine 2V Accession Number(s): [id number] cc: URIEL PEREZ Fluoro Time In Minutes: CHEST 2 VIEWS INDICATION / CLINICAL INFORMATION: Dyspnea, asthma. COMPARISON: None available. FINDINGS: SUPPORT DEVICES: None. HEART / MEDIASTINUM: No significant abnormality. LUNGS / PLEURA: No significant pulmonary or pleural abnormality. No pneumothorax. ADDITIONAL FINDINGS: No significant additional findings. IMPRESSION: 1. No acute findings. Signer Name: Rashi Christianson MD Signed: 03/02/2021 8:26 PM Workstation Name: [id number] Transcribed By: CW Dictated By: AMENA CHRISTIANSON MD Electronically Authenticated By: AMENA CHRISTIANSON MD Signed Date/Time: 03/02/212025 DD/ 25 TD/TT: - Medical Decision Making This is a 26-year-old -[place] male with a history of asthma presents to the ED with acute onset persistent shortness of breath, persistent dry cough and sore throat for the last 2 days. Patient states that he has been using his albuterol inhaler at home up to about 6 hours ago when he ran out of his medication. Patient states that his symptoms were triggered by cigarette smoking at home where his girlfriend smokes cigarettes. Patient states that the shortness of breath, wheezing, chest tightness and dry cough got worse in the last 2 hours. In the ED, patient is alert and oriented x3 and is not in any distress, patient is hemodynamically stable but the oxygen saturation was significantly low of 90% in room air in triage. Patient received DuoNeb treatment for 1 hour in the ED. Chest x-ray shows no acute cardiopulmonary abnormalities or pneumonitis. Patient also received Solu-Medrol 125 mg intramuscular injection. On reevaluation, patient felt better, wheezing resolved, and the oxygen saturation improved significantly to 100% in room air. Patient was therefore discharged home with a prescription of albuterol inhaler, oral steroid Dosepak and cough medications and was advised to follow-up with his primary care physician in 5 to 7 days for reevaluation. Patient is advised return to the ED immediately if symptoms get worse. - Differential Diagnosis Asthma; bronchitis; pneumonia; URI; COVID-19 Critical care attestation.: If time is entered above; I have spent that time in minutes in the direct care of this critically ill patient, excluding procedure time. ED Disposition Clinical Impression: Acute bronchitis with asthma with acute exacerbation, Shortness of breath Disposition: DC-01 TO HOME OR SELFCARE Is pt being admited?: No Does the pt Need Aspirin: No Condition: Stable Instructions: Shortness of Breath, Adult, [id number], Cough, Adult, [id number], Acute Bronchitis, Adult, [id number], Asthma, Adult, [id number], Acute Bronchitis (ED) Additional Instructions: The chest x-ray shows no acute cardiopulmonary abnormalities or pneumonitis. Therefore take medication with food, drink plenty of fluids and follow-up with your primary care physician in 5 to 7 days for reevaluation. Return to the ED immediately if symptoms get worse. Prescriptions: methylPREDNISolone [Medrol 4MG DOSEPAK (21 tabs)] 4 mg PO DAILY #21 tab.ds.pk Albuterol Mdi (or & Nicu Only) [ProAir HFA Inhaler] 2 puff IH QID PRN #8.5 gram PRN Reason: Shortness Of Breath Montelukast [Singulair] 10 mg PO QPM #30 tablet Benzonatate [Tessalon Perles] 100 mg PO Q8HR #30 capsule Referrals: [facility] [Provider Group] - 3-5 Days Forms: Work/School Release Form(ED) Time of Disposition: 21:37 Print Language: GEORGIAN
== END 2021-03-02 22:36 | disposition home or self-care (01) ==
LOC: ED 16:26
DX: J45.901 Unspecified asthma with (acute) exacerbation (principal); R06.02 Shortness of breath; Z79.899 Other long term (current) drug therapy; Z98.890 Other specified postprocedural states
CPT/HCPCS: 71046; 94644; 96372; 99283; J2930

== ENCOUNTER 2021-03-04 19:45 | Emergency (ER) | payer SELFPAY ==
[2021-03-04] MEDS ORDERED: methylPREDNISolone Sod Succinate 125 MG/2 ML INJ IV ONE (20:12)
[2021-03-04] MEDS ORDERED: MAGNESIUM SULFATE 2 GM/50 ML BAG IV ONE (20:12)
[2021-03-04] MEDS ORDERED: LEVALBUTEROL 0.63 MG/3 ML NEBU IH ONE (20:13)
[2021-03-04] MEDS ORDERED: IPRATROPIUM 0.02% NEBU 2.5 ML IH ONE (20:14)
--- NOTE | 2021-03-04 20:17 | Emergency Department Report ---
ED Asthma HPI - General Chief Complaint: Dyspnea/Respdistress Stated Complaint: ALESSANDRA Time Seen by Provider: 03/04/21 20:07 Source: patient, EMS Mode of arrival: Wheelchair Limitations: No Limitations - History of Present Illness Initial Comments: Patient is 26-year-old male with history of asthma. Patient presented to the ER with a chief complaint of shortness of breath, dry cough and wheezing for the last 3 days. Patient was seen here 2 days ago. Patient stated that his symptoms are not improved. Patient denied any fever or chills. No chest pain. Patient denied any nausea or vomiting. MD Complaint: "asthma attack", shortness of breath, wheezing -: days(s) Asthma History: childhood onset, history of prior ED visit Severity: moderate Context: recent URI Associated Symptoms: dry cough Treatments Prior to Arrival: inhaled bronchodilator - Related Data Current Asthma Therapy: inhaled bronchodilator Previous Rx's Medication Instructions Recorded Last Taken Type Albuterol Mdi (or & Nicu Only) 2 puff IH QID PRN #8.5 gram 05/07/20 Unknown Rx [ProAir HFA Inhaler] Benzonatate [Tessalon Perles] 100 mg PO Q8HR #30 capsule 05/07/20 Unknown Rx Azithromycin 500 mg PO DAILY #5 tablet 06/27/20 Unknown Rx Dexamethasone [Decadron] 6 mg PO BID 3 Days #6 tablet 06/27/20 Unknown Rx ALBUTEROL NEB's [Proventil 0.083% 3 ml IH Q6H PRN #75 ml 09/18/20 Unknown Rx NEBS] Albuterol Mdi (or & Nicu Only) 2 puff IH QID PRN #8.5 gram 09/18/20 Unknown Rx [ProAir HFA Inhaler] predniSONE [Deltasone] 20 mg PO QDAY #5 tab 09/18/20 Unknown Rx predniSONE [Deltasone] 40 mg PO QDAY 5 Days #10 tab 09/27/20 Unknown Rx Albuterol Mdi (or & Nicu Only) 2 puff IH QID PRN #8.5 gram 03/02/21 Unknown Rx [ProAir HFA Inhaler] Benzonatate [Tessalon Perles] 100 mg PO Q8HR #30 capsule 03/02/21 Unknown Rx Montelukast [Singulair] 10 mg PO QPM #30 tablet 03/02/21 Unknown Rx methylPREDNISolone [Medrol 4MG 4 mg PO DAILY #21 tab.ds.pk 03/02/21 Unknown Rx DOSEPAK (21 tabs)] Allergies Allergy/AdvReac Type Severity Reaction Status Date / Time No Known Allergies Allergy Unverified 05/07/20 16:54 ED Review of Systems ROS: Stated complaint: ALESSANDRA Other details as noted in HPI Comment: All other systems reviewed and negative Constitutional: denies: chills, fever Respiratory: cough, shortness of breath, SOB with exertion, SOB at rest, wheezing Cardiovascular: denies: chest pain, palpitations Gastrointestinal: denies: abdominal pain, nausea, vomiting Musculoskeletal: denies: back pain Neurological: denies: headache, weakness, numbness, paresthesias, confusion ED Past Medical Hx - Past Medical History Previous Medical History?: Yes Hx Asthma: Yes - Surgical History Past Surgical History?: Yes Additional Surgical History: Left shoulder, tonsilectomy, Adenoidectomy - Social History Smoking Status: Never Smoker - Medications Home Medications: Home Medications Medication Instructions Recorded Confirmed Last Taken Type Albuterol Mdi (or & Nicu Only) 2 puff IH QID PRN #8.5 gram 05/07/20 Unknown Rx [ProAir HFA Inhaler] Benzonatate [Tessalon Perles] 100 mg PO Q8HR #30 capsule 05/07/20 Unknown Rx Azithromycin 500 mg PO DAILY #5 tablet 06/27/20 Unknown Rx Dexamethasone [Decadron] 6 mg PO BID 3 Days #6 tablet 06/27/20 Unknown Rx ALBUTEROL NEB's [Proventil 0.083% 3 ml IH Q6H PRN #75 ml 09/18/20 Unknown Rx NEBS] Albuterol Mdi (or & Nicu Only) 2 puff IH QID PRN #8.5 gram 09/18/20 Unknown Rx [ProAir HFA Inhaler] predniSONE [Deltasone] 20 mg PO QDAY #5 tab 09/18/20 Unknown Rx predniSONE [Deltasone] 40 mg PO QDAY 5 Days #10 tab 09/27/20 Unknown Rx Albuterol Mdi (or & Nicu Only) 2 puff IH QID PRN #8.5 gram 03/02/21 Unknown Rx [ProAir HFA Inhaler] Benzonatate [Tessalon Perles] 100 mg PO Q8HR #30 capsule 03/02/21 Unknown Rx Montelukast [Singulair] 10 mg PO QPM #30 tablet 03/02/21 Unknown Rx methylPREDNISolone [Medrol 4MG 4 mg PO DAILY #21 tab.ds.pk 03/02/21 Unknown Rx DOSEPAK (21 tabs)] ED Physical Exam - General Limitations: No Limitations General appearance: alert, in distress - Head Head exam: Present: atraumatic, normocephalic, normal inspection - Eye Eye exam: Present: normal appearance, PERRL - ENT ENT exam: Present: normal exam, normal orophraynx, mucous membranes moist - Neck Neck exam: Present: normal inspection, full ROM. Absent: tenderness, men ingismus - Respiratory Respiratory exam: Present: respiratory distress, wheezes, rhonchi, accessory muscle use, decreased breath sounds, prolonged expiratory. Absent: rales - Cardiovascular Cardiovascular Exam: Present: tachycardia - GI/Abdominal GI/Abdominal exam: Present: soft, normal bowel sounds. Absent: distended, tenderness, guarding, rebound, rigid, mass, bruit, pulsatile mass, hernia - Extremities Exam Extremities exam: Present: normal inspection, full ROM, normal capillary refill. Absent: tenderness, pedal edema, joint swelling, calf tenderness - Back Exam Back exam: Present: normal inspection, full ROM. Absent: CVA tenderness (R), CVA tenderness (L) - Neurological Exam Neurological exam: Present: alert, oriented X3, CN II-XII intact - Psychiatric Psychiatric exam: Present: normal mood - Skin Skin exam: Present: warm, intact, normal color ED Course Vital Signs 03/04/21 03/04/21 20:05 21:50 Temperature 98.2 F Pulse Rate 126 H Pulse Rate [ 104 H Anterior Bilateral Throughout] Respiratory 29 H Rate Respiratory 18 Rate [Anterior Bilateral Throughout] Blood Pressure 144/63 O2 Sat by Pulse 95 Oximetry - Reevaluation(s) Reevaluation #1: 03/04/21 23:14 Patient stated that he is feeling much better. On exam, mild diffuse wheezing. No acute respiratory distress. ED Medical Decision Making - Lab Data Result diagrams: 03/04/21 20:42 03/04/21 20:42 - Radiology Data Radiology results: report reviewed - Medical Decision Making Patient is 26-year-old male with history of asthma. Patient presented to the ER with a chief complaint of shortness of breath, dry cough and wheezing for the last 3 days. Patient was seen here 2 days ago. Patient stated that his symptoms are not improved. Patient denied any fever or chills. No chest pain. Patient denied any nausea or vomiting. Patient received Solu-Medrol, magnesium sulfate and epinephrine by EMS. Patient received Xopenex and Atrovent. Labs reviewed and showed leukocytosis, most likely related to his steroid or acute bronchitis. Chest x-ray is unremarkable. Patient already have prescription filled for albuterol and prednisone. Patient advised to follow-up with his primary care physician in the next 2 to 3 days and to return to the ER if he develop any new symptoms. Critical care attestation.: If time is entered above; I have spent that time in minutes in the direct care of this critically ill patient, excluding procedure time. ED Disposition Clinical Impression: Acute bronchitis with asthma with acute exacerbation Disposition: DC-01 TO HOME OR SELFCARE Is pt being admited?: No Condition: Stable Instructions: Acute Bronchitis (ED), Bronchospasm, Adult, Acute Bronchitis, Adult Referrals: [facility] [place] [Provider Group] - 3-5 Days
--- NOTE | 2021-03-04 20:53 | XRay Report ---
CHEST 1 VIEW 03/04/2021 7:43 PM INDICATION / CLINICAL INFORMATION: Asthma. COMPARISON: 03/02/2021. FINDINGS: SUPPORT DEVICES: None. HEART / MEDIASTINUM: No significant abnormality. LUNGS / PLEURA: No significant pulmonary or pleural abnormality. No pneumothorax. ADDITIONAL FINDINGS: No significant additional findings. IMPRESSION: No acute abnormality. Signer Name: Barron Herman MD Signed: 03/04/2021 8:49 PM Workstation Name: [id number]
[2021-03-04 21:24] LABS: Basophils # (Auto) 0.1 K/mm3 (0.0-0.1); Basophils % (Auto) 0.4 % (0.0-1.8); Eosinophils # (Auto) 0.4 K/mm3 (0.0-0.4); Eosinophils % (Auto) 2.3 % (0.0-4.3); Hemoglobin 14.3 gm/dl (11.8-15.2); Lymphocytes # (Auto) 1.9 K/mm3 (1.2-5.4); Lymphocytes % (Auto) 10.6 % (13.4-35.0); Mean Corpuscular HGB Conc 33 % (32-34); Mean Corpuscular Volume 76 fl (84-94); Monocytes % (Auto) 5.3 % (0.0-7.3); Platelet Count 310 K/mm3 (140-440); Red Blood Count 5.66 M/mm3 (3.65-5.03); Red Cell Distribution Width 16.6 % (13.2-15.2)
[2021-03-04 21:33] LABS: BUN/Creatinine Ratio 16; Blood Urea Nitrogen 13 mg/dL (9-20); Calcium 9.3 mg/dL (8.4-10.2); Hemolysis Index 10
[2021-03-05 02:07] VITALS: BP 131/72
== END 2021-03-05 02:36 | disposition home or self-care (01) ==
LOC: ED 19:45
DX: J45.901 Unspecified asthma with (acute) exacerbation (principal); J20.9 Acute bronchitis, unspecified; Z79.899 Other long term (current) drug therapy; Z98.890 Other specified postprocedural states
CPT/HCPCS: 36415; 71045; 80048; 85025; 94644

== ENCOUNTER 2021-09-17 00:20 | Inpatient (IN) | payer SELFPAY ==
[2021-09-17] MEDS ORDERED: ALBUTEROL 2.5 MG/3 ML NEBU IH ONE (03:37)
[2021-09-17] MEDS ORDERED: TERBUTALINE 1 MG/1 ML INJ SUB-Q ONE (03:37)
[2021-09-17] MEDS ORDERED: MAGNESIUM SULFATE 2 GM/50 ML BAG IV ONE (03:37)
[2021-09-17] MEDS ORDERED: IPRATROPIUM 0.02% NEBU 2.5 ML IH ONE (03:37)
[2021-09-17] MEDS ORDERED: methylPREDNISolone Sod Succinate 125 MG/2 ML INJ IV ONE (03:37)
[2021-09-17] MEDS ORDERED: SODIUM CHLORIDE 0.9% 1000 ML 1,000 ML IV ONE (04:03)
--- NOTE | 2021-09-17 04:06 | Emergency Department Report ---
HPI - General Chief Complaint: Dyspnea/Respdistress Time Seen by Provider: 09/17/21 03:37 - HPI HPI: Room 18 The patient is a 26-year-old male present with a chief complaint of shortness of breath. Patient has a history of asthma states for the past 3 to 4 days has had a cough occasionally productive of sputum. Patient states he feels as though his left lung is congested. Patient states he has been having worsening shortness of breath for the same period of time. In the ED the patient was found to be hypoxic to the low 80s on room air. Patient denies history of fever. Patient states she has been vaccinated against COVID however he states h e received his second dose less than 1 month ago ED Past Medical Hx - Past Medical History Previous Medical History?: Yes Hx Asthma: Yes - Surgical History Additional Surgical History: Left shoulder, tonsilectomy, Adenoidectomy - Family History Family history: no significant - Social History Smoking Status: Never Smoker Substance Use Type: None (Denies illicit drug use) - Medications Home Medications: Home Medications Medication Instructions Recorded Confirmed Last Taken Type Albuterol Mdi (or & Nicu Only) 2 puff IH QID PRN #8.5 gram 05/07/20 Unknown Rx [ProAir HFA Inhaler] Benzonatate [Tessalon Perles] 100 mg PO Q8HR #30 capsule 05/07/20 Unknown Rx Azithromycin 500 mg PO DAILY #5 tablet 06/27/20 Unknown Rx Dexamethasone [Decadron] 6 mg PO BID 3 Days #6 tablet 06/27/20 Unknown Rx ALBUTEROL NEB's [Proventil 0.083% 3 ml IH Q6H PRN #75 ml 09/18/20 Unknown Rx NEBS] Albuterol Mdi (or & Nicu Only) 2 puff IH QID PRN #8.5 gram 09/18/20 Unknown Rx [ProAir HFA Inhaler] predniSONE [Deltasone] 20 mg PO QDAY #5 tab 09/18/20 Unknown Rx predniSONE [Deltasone] 40 mg PO QDAY 5 Days #10 tab 09/27/20 Unknown Rx Albuterol Mdi (or & Nicu Only) 2 puff IH QID PRN #8.5 gram 03/02/21 Unknown Rx [ProAir HFA Inhaler] Benzonatate [Tessalon Perles] 100 mg PO Q8HR #30 capsule 03/02/21 Unknown Rx Montelukast [Singulair] 10 mg PO QPM #30 tablet 03/02/21 Unknown Rx methylPREDNISolone [Medrol 4MG 4 mg PO DAILY #21 tab.ds.pk 03/02/21 Unknown Rx DOSEPAK (21 tabs)] Azithromycin [Zithromax Z-MARIOLA] 250 mg PO DAILY 1 Days tab 03/04/21 Unknown Rx ED Review of Systems ROS: Stated complaint: ASTHMA Other details as noted in HPI Constitutional: denies: fever Eyes: denies: eye pain ENT: denies: throat pain Respiratory: cough, shortness of breath, wheezing Cardiovascular: denies: chest pain Endocrine: no symptoms reported Gastrointestinal: denies: vomiting Genitourinary: denies: dysuria Musculoskeletal: denies: back pain Physical Exam - Physical Exam Vital Signs: Vital Signs 09/17/21 09/17/21 03:30 03:37 Pulse Rate 136 H Pulse Rate [ 117 H Posterior Bilateral Throughout] Respiratory 20 Rate Respiratory 32 H Rate [Posterior Bilateral Throughout] Blood Pressure 133/92 [Right] O2 Sat by Pulse 88 Oximetry Physical Exam: GENERAL: The patient is well-developed well-nourished male lying on stretcher diaphoretic exhibiting increased work of breathing. [] HEENT: Normocephalic. Atraumatic. Extraocular motions are intact. Patient has moist mucous membranes. NECK: Supple. Trachea midline CHEST/LUNGS: Very tight, diffuse wheezing. Accessory muscle use HEART/CARDIOVASCULAR: Regular. There is tachycardia. There is no gallop rub or murmur. ABDOMEN: Abdomen is soft, nontender. Patient has normal bowel sounds. There is no abdominal distention. SKIN: The patient is diaphoretic NEURO: The patient is awake, alert, and oriented. The patient is cooperative. The patient has no focal neurologic deficits. MUSCULOSKELETAL: There is no evidence of acute injury. ED Course Vital Signs 09/17/21 09/17/21 03:30 03:37 Pulse Rate 136 H Pulse Rate [ 117 H Posterior Bilateral Throughout] Respiratory 20 Rate Respiratory 32 H Rate [Posterior Bilateral Throughout] Blood Pressure 133/92 [Right] O2 Sat by Pulse 88 Oximetry ED Medical Decision Making - Lab Data Result diagrams: 09/17/21 03:46 09/17/21 03:46 Laboratory Tests 09/17/21 09/17/21 09/17/21 03:46 03:46 03:46 WBC 22.7 H RBC 6.40 H Hgb 15.9 H Hct 48.6 H MCV 76 L MCH 25 L MCHC 33 RDW 15.8 H Plt Count 377 Lymph # (Auto) [employer] Sodium 143 Potassium 4.1 Chloride 105.8 Carbon Dioxide 21 L Anion Gap 20 BUN 16 Creatinine 0.9 Estimated GFR > 60 BUN/Creatinine Ratio 18 Glucose 109 H Lactic Acid 2.20 H* Calcium 9.0 NT-Pro-B Natriuret Pep 35.96 - Radiology Data Radiology results: report reviewed (Chest x-ray), image reviewed (Chest x-ray) interpreted by me: Chest x-ray-left lobe haziness. No definite focal infiltrates, no pneumothorax [facility] [address] [place] [address] XRay Report Signed Patient: DENISE KEBEDE MR#: [id number] : 1995 Acct:[id number] Age/Sex: 26 / M ADM Date: 09/17/21 Loc: ED Attending Dr: Ordering Physician: JESSE LUGO MD Date of Service: 09/17/21 Procedure(s): XR chest 1V ap Accession Number(s): [id number] cc: JESSE LUGO MD Fluoro Time In Minutes: CHEST 1 VIEW INDICATION / CLINICAL INFORMATION: Shortness of breath, hypoxia. COMPARISON: Chest x-ray 03/04/2021 FINDINGS: SUPPORT DEVICES: None. HEART / MEDIASTINUM: No significant abnormality. LUNGS / PLEURA: No significant pulmonary or pleural abnormality. No pneumothorax. ADDITIONAL FINDINGS: No significant additional findings. IMPRESSION: 1. No active cardiopulmonary disease. Signer Name: Ijeoma Cruz II, MD Signed: 09/17/2021 4:25 AM Workstation Name: [id number] Transcribed By: MADINA Dictated By: IJEOMA RCUZ II, MD Electronically Authenticated By: IJEOMA CRUZ II, MD Signed Date/Time: 09/17/21424 DD/ 4 TD/TT: Print Cancel - Differential Diagnosis Acute asthma exacerbation, pneumonia, bronchitis Critical care attestation.: If time is entered above; I have spent that time in minutes in the direct care of this critically ill patient, excluding procedure time. ED Disposition Clinical Impression: Shortness of breath, Acute asthma exacerbation, Productive cough, Hypoxia, Leukocytosis Disposition: 09 ADMITTED INPATIENT Is pt being admited?: Yes Does the pt Need Aspirin: No Condition: Fair Time of Disposition: 04:57 (Hospitalist called (Dr. Bar))
[2021-09-17 04:21] LABS: Hematocrit 48.6 % (35.5-45.6); Hemoglobin 15.9 gm/dl (11.8-15.2); Mean Corpuscular HGB Conc 33 % (32-34); Mean Corpuscular Volume 76 fl (84-94); Platelet Count 377 K/mm3 (140-440); Red Cell Distribution Width 15.8 % (13.2-15.2)
[2021-09-17 04:24] LABS: BUN/Creatinine Ratio 18; Blood Urea Nitrogen 16 mg/dL (9-20); Hemolysis Index 2
--- NOTE | 2021-09-17 04:30 | XRay Report ---
CHEST 1 VIEW INDICATION / CLINICAL INFORMATION: Shortness of breath, hypoxia. COMPARISON: Chest x-ray 03/04/2021 FINDINGS: SUPPORT DEVICES: None. HEART / MEDIASTINUM: No significant abnormality. LUNGS / PLEURA: No significant pulmonary or pleural abnormality. No pneumothorax. ADDITIONAL FINDINGS: No significant additional findings. IMPRESSION: 1. No active cardiopulmonary disease. Signer Name: Osiel Monge II, MD Signed: 09/17/2021 4:25 AM Workstation Name: [id number]
[2021-09-17] MEDS ORDERED: cefTRIAXone/NS 1 GM/50 ML 1 GM/50 ML BAG IV ONE (04:37)
[2021-09-17] MEDS ORDERED: AZITHROMYCIN/NS 500 MG/250 ML 500 MG/250 ML BAG IV ONE (04:57)
[2021-09-17 05:41] LABS: Anisocytosis 2+; Total Cells Counted 100
[2021-09-17 05:42] LABS: Ovalocytes Few; Platelet Estimate Consistent w Auto
[2021-09-17] MEDS ORDERED: ALBUTEROL 2.5 MG/3 ML NEBU IH PRN (05:42)
[2021-09-17] MEDS ORDERED: ACETAMINOPHEN 325 MG TAB PO PRN (05:42)
[2021-09-17] MEDS ORDERED: MORPHINE 2 MG/1 ML INJ IV PRN (05:42)
[2021-09-17] MEDS ORDERED: ONDANSETRON 4 MG/2 ML INJ IV PRN (05:42)
[2021-09-17] MEDS ORDERED: HYDROmorphone 1 MG/1 ML INJ IV PRN (05:42)
--- NOTE | 2021-09-17 05:50 | History and Physical Report ---
History of Present Illness Date of examination: 09/17/21 Date of admission: 09/17/21 Chief complaint: Shortness of breath History of present illness: 26-year-old male with history of asthma was brought to the emergency room because of shortness of breath. For the past 3 to 4 days has had a cough occasionally productive of sputum. Patient states he feels as though his left lung is congested. Patient states he has been having worsening shortness of breath for the same period of time. In the ED the patient was found to be hypoxic to the low 80s on room air. Patient denies history of fever. Patient states she has been vaccinated against COVID however he states he received his second dose less than 1 month ago In the emergency room patient WBC is 22.7, chest x-ray shows pneumonia as per the ER physician.'s were going to admit the patient I put the patient on pneumonia pathway antibiotic and neb treatment Past History Past Medical History: other (Asthma) Past Surgical History: Other (Left shoulder, tonsilectomy, Adenoidectomy) Medications and Allergies Allergies Allergy/AdvReac Type Severity Reaction Status Date / Time No Known Allergies Allergy Unverified 05/07/20 16:54 Home Medications Medication Instructions Recorded Confirmed Last Taken Type Albuterol Mdi (or & Nicu Only) 2 puff IH QID PRN #8.5 gram 05/07/20 Unknown Rx [ProAir HFA Inhaler] Benzonatate [Tessalon Perles] 100 mg PO Q8HR #30 capsule 05/07/20 Unknown Rx Azithromycin 500 mg PO DAILY #5 tablet 06/27/20 Unknown Rx Dexamethasone [Decadron] 6 mg PO BID 3 Days #6 tablet 06/27/20 Unknown Rx ALBUTEROL NEB's [Proventil 0.083% 3 ml IH Q6H PRN #75 ml 09/18/20 Unknown Rx NEBS] Albuterol Mdi (or & Nicu Only) 2 puff IH QID PRN #8.5 gram 09/18/20 Unknown Rx [ProAir HFA Inhaler] predniSONE [Deltasone] 20 mg PO QDAY #5 tab 09/18/20 Unknown Rx predniSONE [Deltasone] 40 mg PO QDAY 5 Days #10 tab 09/27/20 Unknown Rx Albuterol Mdi (or & Nicu Only) 2 puff IH QID PRN #8.5 gram 07/25/21 Unknown Rx [ProAir HFA Inhaler] Benzonatate [Tessalon Perles] 100 mg PO Q8HR #30 capsule 03/02/21 Unknown Rx Montelukast [Singulair] 10 mg PO QPM #30 tablet 03/02/21 Unknown Rx methylPREDNISolone [Medrol 4MG 4 mg PO DAILY #21 tab.ds.pk 03/02/21 Unknown Rx DOSEPAK (21 tabs)] Azithromycin [Zithromax Z-MARIOLA] 250 mg PO DAILY 1 Days tab 03/04/21 Unknown Rx Active Meds: Active Medications Acetaminophen (Acetaminophen 325 Mg Tab) 650 mg PO Q4H PRN PRN Reason: Pain MILD(1-3)/Fever >100.5/LEVINE Albuterol (Albuterol 2.5 Mg/3 Ml Nebu) 2.5 mg IH Q3HRT PRN PRN Reason: Shortness Of Breath Albuterol/Ipratropium (Ipratropium/Albuterol Sulfate 3 Ml Ampul.Neb) 1 ampul IH Q6HRT LAUREN Famotidine (Famotidine 20 Mg Tab) 20 mg PO BID LAUREN Heparin Sodium (Porcine) (Heparin 5,000 Unit/1 Ml Vial) 5,000 unit SUB-Q Q12HR LAUREN Hydromorphone HCl (Hydromorphone 1 Mg/1 Ml Inj) 0.5 mg IV Q3H PRN PRN Reason: Pain , Severe (7-10) Azithromycin (Zithromax/Ns) 500 mg in 250 mls @ 250 mls/hr IV ONCE ONE; Protocol Stop: 09/17/21 05:56 Ceftriaxone Sodium (Rocephin/Ns 2 Gm/100 Ml) 2 gm in 100 mls @ 200 mls/hr IV Q24H LAUREN; Protocol Azithromycin (Zithromax/Ns) 500 mg in 250 mls @ 250 mls/hr IV Q24H LAUREN; Protocol Morphine Sulfate (Morphine 2 Mg/1 Ml Inj) 2 mg IV Q4H PRN PRN Reason: Pain, Moderate (4-6) Ondansetron HCl (Ondansetron 4 Mg/2 Ml Inj) 4 mg IV Q8H PRN PRN Reason: Nausea And Vomiting Sodium Chloride (Sodium Chloride 0.9% 10 Ml Flush Syringe) 10 ml IV BID LAUREN Sodium Chloride (Sodium Chloride 0.9% 10 Ml Flush Syringe) 10 ml IV PRN PRN PRN Reason: LINE FLUSH Review of Systems Cardiovascular: shortness of breath, dyspnea on exertion Respiratory: cough, shortness of breath, dyspnea on exertion, wheezing Exam - Constitutional Vitals: Temp Pulse Resp BP Pulse Ox 117 H 20 133/92 88 09/17/21 04:31 09/17/21 04:31 09/17/21 03:37 09/17/21 03:37 General appearance: Present: no acute distress, well-nourished - EENT Eyes: Present: PERRL ENT: hearing intact, clear oral mucosa - Neck Neck: Present: supple, normal ROM - Respiratory Respiratory effort: normal Respiratory: bilateral: wheezing - Cardiovascular Heart Sounds: Present: S1 & S2. Absent: rub, click - Extremities Extremities: pulses symmetrical, No edema Peripheral Pulses: within normal limits - Abdominal General gastrointestinal: Present: soft, non-tender, non-distended, normal bowel sounds Male genitourinary: Present: normal - Integumentary Integumentary: Present: clear, warm, dry - Musculoskeletal Musculoskeletal: gait normal, strength equal bilaterally - Psychiatric Psychiatric: appropriate mood/affect, intact judgment & insight - Neurologic Neurologic: CNII-XII intact, moves all extremities Results - Labs CBC & Chem 7: 09/17/21 03:46 09/17/21 03:46 Labs: Laboratory Last Values WBC 22.7 K/mm3 (4.5-11.0) H 09/17/21 03:46 RBC 6.40 M/mm3 (3.65-5.03) H 09/17/21 03:46 Hgb 15.9 gm/dl (11.8-15.2) H 09/17/21 03:46 Hct 48.6 % (35.5-45.6) H 09/17/21 03:46 MCV 76 fl (84-94) L 09/17/21 03:46 MCH 25 pg (28-32) L 09/17/21 03:46 MCHC 33 % (32-34) 09/17/21 03:46 RDW 15.8 % (13.2-15.2) H 09/17/21 03:46 Plt Count 377 K/mm3 (140-440) 09/17/21 03:46 Lymph # (Auto) Rv Service Technician 09/17/21 03:46 Add Manual Diff Complete 09/17/21 03:46 Total Counted 100 09/17/21 03:46 Seg Neuts % (Manual) 62.0 % (40.0-70.0) 09/17/21 03:46 Band Neutrophils % 0 % 09/17/21 03:46 Lymphocytes % (Manual) 27.0 % (13.4-35.0) 09/17/21 03:46 Reactive Lymphs % (Man) 0 % 09/17/21 03:46 Monocytes % (Manual) 7.0 % (0.0-7.3) 09/17/21 03:46 Eosinophils % (Manual) 3.0 % (0.0-4.3) 09/17/21 03:46 Basophils % (Manual) 1.0 % (0.0-1.8) 09/17/21 03:46 Metamyelocytes % 0 % 09/17/21 03:46 Myelocytes % 0 % 09/17/21 03:46 Promyelocytes % 0 % 09/17/21 03:46 Blast Cells % 0 % 09/17/21 03:46 Nucleated RBC % Not Reportable 09/17/21 03:46 Seg Neutrophils # Man 14.1 K/mm3 (1.8-7.7) H 09/17/21 03:46 Band Neutrophils # 0.0 K/mm3 09/17/21 03:46 Lymphocytes # (Manual) 6.1 K/mm3 (1.2-5.4) H 09/17/21 03:46 Abs React Lymphs (Man) 0.0 K/mm3 09/17/21 03:46 Monocytes # (Manual) 1.6 K/mm3 (0.0-0.8) H 09/17/21 03:46 Eosinophils # (Manual) 0.7 K/mm3 (0.0-0.4) H 09/17/21 03:46 Basophils # (Manual) 0.2 K/mm3 (0.0-0.1) H 09/17/21 03:46 Metamyelocytes # 0.0 K/mm3 09/17/21 03:46 Myelocytes # 0.0 K/mm3 09/17/21 03:46 Promyelocytes # 0.0 K/mm3 09/17/21 03:46 Blast Cells # 0.0 K/mm3 09/17/21 03:46 WBC Morphology Not Reportable 09/17/21 03:46 Hypersegmented Neuts Not Reportable 09/17/21 03:46 Hyposegmented Neuts Not Reportable 09/17/21 03:46 Hypogranular Neuts Not Reportable 09/17/21 03:46 Smudge Cells Not Reportable 09/17/21 03:46 Toxic Granulation Not Reportable 09/17/21 03:46 Toxic Vacuolation Not Reportable 09/17/21 03:46 Dohle Bodies Not Reportable 09/17/21 03:46 Pelger-Huet Anomaly Not Reportable 09/17/21 03:46 Gretchen Rods Not Reportable 09/17/21 03:46 Platelet Estimate Consistent w auto 09/17/21 03:46 Clumped Platelets Not Reportable 09/17/21 03:46 Plt Clumps, EDTA Not Reportable 09/17/21 03:46 Large Platelets Not Reportable 09/17/21 03:46 Giant Platelets Not Reportable 09/17/21 03:46 Platelet Satelliting Not Reportable 09/17/21 03:46 Plt Morphology Comment Not Reportable 09/17/21 03:46 RBC Morphology Not Reportable 09/17/21 03:46 Dimorphic RBCs Not Reportable 09/17/21 03:46 Polychromasia Not Reportable 09/17/21 03:46 Hypochromasia Not Reportable 09/17/21 03:46 Poikilocytosis Not Reportable 09/17/21 03:46 Anisocytosis 2+ 09/17/21 03:46 Microcytosis 2+ 09/17/21 03:46 Macrocytosis Not Reportable 09/17/21 03:46 Spherocytes Not Reportable 09/17/21 03:46 Pappenheimer Bodies Not Reportable 09/17/21 03:46 Sickle Cells Not Reportable 09/17/21 03:46 Target Cells Not Reportable 09/17/21 03:46 Tear Drop Cells Not Reportable 09/17/21 03:46 Ovalocytes Few 09/17/21 03:46 Helmet Cells Not Reportable 09/17/21 03:46 [place] Bodies Not Reportable 09/17/21 03:46 [place] Rings Not Reportable 09/17/21 03:46 Mery Cells Not Reportable 09/17/21 03:46 Bite Cells Not Reportable 09/17/21 03:46 Crenated Cell Not Reportable 09/17/21 03:46 Elliptocytes Not Reportable 09/17/21 03:46 Acanthocytes (Spur) Not Reportable 09/17/21 03:46 Rouleaux Not Reportable 09/17/21 03:46 Hemoglobin C Crystals Not Reportable 09/17/21 03:46 Schistocytes Not Reportable 09/17/21 03:46 Malaria parasites Not Reportable 09/17/21 03:46 Rojelio Bodies Not Reportable 09/17/21 03:46 Hem Pathologist Commnt No 09/17/21 03:46 Sodium 143 mmol/L (137-145) 09/17/21 03:46 Potassium 4.1 mmol/L (3.6-5.0) 09/17/21 03:46 Chloride 105.8 mmol/L (98-107) 09/17/21 03:46 Carbon Dioxide 21 mmol/L (22-30) L 09/17/21 03:46 Anion Gap 20 mmol/L 09/17/21 03:46 BUN 16 mg/dL (9-20) 09/17/21 03:46 Creatinine 0.9 mg/dL (0.8-1.3) 09/17/21 03:46 Estimated GFR > 60 ml/min 09/17/21 03:46 BUN/Creatinine Ratio 18 % 09/17/21 03:46 Glucose 109 mg/dL (75-100) H 09/17/21 03:46 Lactic Acid 2.20 mmol/L (0.7-2.0) H* 09/17/21 03:46 Calcium 9.0 mg/dL (8.4-10.2) 09/17/21 03:46 NT-Pro-B Natriuret Pep 35.96 pg/mL (0-450) 09/17/21 03:46 - Imaging and Cardiology Chest x-ray: report reviewed Assessment and Plan VTE prophylaxis?: Chemical Plan of care discussed with patient/family: Yes - Patient Problems (1) Pneumonia Current Visit: Yes Status: Acute Plan to address problem: Admit the patient to the medical floor. Oxygen via nasal cannula 3 L/min. DuoNeb via nebulizer every 4 hours. Solu-Medrol 40 mg IV every 12 hours. Rocephin 2 g IV daily. Zithromax 500 mg IV daily. We do the blood culture and sputum culture. CBC in the morning. Consult pulmonary if needed (2) Acute asthma exacerbation Current Visit: Yes Status: Acute Plan to address problem: Oxygen via nasal cannula 3 L/min. DuoNeb via nebulizer every 4 hours. Solu- Medrol 40 mg IV every 12 hours. (3) Hypoxia Current Visit: Yes Status: Acute Plan to address problem: Oxygen via nasal cannula 3 L/min. DuoNeb via nebulizer every 4 hours. Solu- Medrol 40 mg IV every 12 hours. (4) Leukocytosis Current Visit: Yes Status: Acute Plan to address problem: Rocephin 2 g IV daily. Zithromax 500 mg IV daily. We do the blood culture and sputum culture. CBC in the morning. Consult pulmonary if needed (5) DVT prophylaxis Current Visit: Yes Status: Acute Plan to address problem: Heparin 5000 units subcu every 12 hours for DVT prophylaxis. Pepcid 20 mg p.o. twice daily for GI prophylaxis. Patient is a full code
[2021-09-17 07:19] VITALS: BP 112/57
[2021-09-17] MEDS ORDERED: IPRATROPIUM/ALBUTEROL SULFATE 3 ML AMPUL.NEB IH SCH (08:00)
[2021-09-17] MEDS ORDERED: methylPREDNISolone Sod Succinate 40 MG/1 ML INJ IV SCH (10:00)
[2021-09-17] MEDS ORDERED: HEPARIN 5,000 UNIT/1 ML VIAL SUB-Q SCH (10:00)
[2021-09-17] MEDS ORDERED: FAMOTIDINE 20 MG TAB PO SCH (10:00)
--- NOTE | 2021-09-17 20:39 | Discharge Summary ---
Providers - Providers Date of Admission: 09/17/21 05:42 Attending physician: AZRA ALBA MD Primary care physician: HORTENCIA WELLS Hospitalization Condition: Stable Hospital course: 26-year-old male with history of asthma was brought to the emergency room because of shortness of breath. For the past 3 to 4 days has had a cough occasionally productive of sputum. Patient states he feels as though his left lung is congested. Patient states he has been having worsening shortness of breath for the same period of time. In the ED the patient was found to be hypoxic to the low 80s on room air. Patient denies history of fever. Patient states she has been vaccinated against COVID however he states he received his second dose less than 1 month ago (1) possible pneumonia Current Visit: Yes Status: Acute Plan to address problem: Admit the patient to the medical floor. Oxygen via nasal cannula 3 L/min. DuoNeb via nebulizer every 4 hours. Solu-Medrol 40 mg IV every 12 hours. Rocephin 2 g IV daily. Zithromax 500 mg IV daily. We do the blood culture and sputum culture. CBC in the morning. Consult pulmonary if needed (2) Acute asthma exacerbation Current Visit: Yes Status: Acute Plan to address problem: Oxygen via nasal cannula 3 L/min. DuoNeb via nebulizer every 4 hours. Solu- Medrol 40 mg IV every 12 hours. (3) Hypoxia Current Visit: Yes Status: Acute Plan to address problem: Oxygen via nasal cannula 3 L/min. DuoNeb via nebulizer every 4 hours. Solu- Medrol 40 mg IV every 12 hours. (4) Leukocytosis Current Visit: Yes Status: Acute Plan to address problem: Rocephin 2 g IV daily. Zithromax 500 mg IV daily. We do the blood culture and sputum culture. CBC in the morning. Consult pulmonary if needed Discharge disposition: Patient self discharged AMA just few hours after admission stating that he was feeling better. He left before seen by the hospitalist during the morning rounds. Disposition: 07 LEFT AGAINST MEDICAL ADVICE Final Discharge Diagnosis (Prints w/discharge instructions): Acute asthma exacerbation. Leukocytosis Time spent for discharge: 35 minutes Core Measure Documentation - Palliative Care Palliative Care/ Comfort Measures: Not Applicable - Core Measures Any of the following diagnoses?: none Exam - Physical Exam Narrative exam: Patient left AMA before seen during the morning rounds - Constitutional Vitals: Temp Pulse Resp BP Pulse Ox 97.9 F 68 20 112/57 95 09/17/21 06:22 09/17/21 09:38 09/17/21 09:38 09/17/21 07:01 09/17/21 07:01 Plan Follow up with: HORTENCIA WELLS MD [Primary Care Provider] - 7 Days Forms: AMA Form
[2021-09-18] MEDS ORDERED: cefTRIAXone/NS 2 GM/100 ML 2 GM/100 ML BAG IV SCH (06:00)
[2021-09-18] MEDS ORDERED: AZITHROMYCIN/NS 500 MG/250 ML 500 MG/250 ML BAG IV SCH (06:00)
[2021-09-18] MEDS ORDERED: AZITHROMYCIN 250 MG TAB PO SCH (10:00)
== END 2021-09-17 13:00 | disposition left against medical advice (07) | DRG 202 ==
LOC: ED 00:20 → 3A 05:42
PROVIDERS: ADMIT Hospitalist; ATTEND Internal Medicine
DX: J45.901 Unspecified asthma with (acute) exacerbation (principal); J18.9 Pneumonia, unspecified organism; D72.829 Elevated white blood cell count, unspecified; R09.02 Hypoxemia; Z53.29 Procedure and treatment not carried out because of patient's decision for other reasons
CPT/HCPCS: 36415; 71045; 80048; 82140; 83880; 85007; 85025; 87040; 94640; 94644; G0378; Q0162; J0456; J0696; J2930; J3105; J3475; J7030

== ENCOUNTER 2021-09-28 18:13 | Emergency (ER) | payer SELFPAY ==
[2021-09-28 18:53] VITALS: BP 114/60
[2021-09-29] MEDS ORDERED: ACETAMINOPEN W/CODEINE 120-12MG ORAL LIQD 5 ML PO STA (00:48)
--- NOTE | 2021-09-29 01:33 | XRay Report ---
XR chest routine 2V INDICATION / CLINICAL INFORMATION: Asthma. COMPARISON: 09/17/2021 FINDINGS: SUPPORT DEVICES: None. HEART /PULMONARY VASCULATURE: No significant abnormality. LUNGS / PLEURA: No significant pulmonary or pleural abnormality. No pneumothorax. ADDITIONAL FINDINGS: No significant additional findings. IMPRESSION: 1. No acute findings. Signer Name: Anjel Malcolm MD Signed: 09/29/2021 1:28 AM Workstation Name: [id number]
--- NOTE | 2021-09-29 02:50 | Emergency Department Report ---
ED General Adult HPI - General Chief complaint: Adult Asthma Stated complaint: ASTHMA ATTACK PUI?: No Time Seen by Provider: 09/29/21 00:43 Source: patient Mode of arrival: Ambulatory Limitations: No Limitations - History of Present Illness Initial comments: 26-year-old male just emerged from complaining of having a possible asthma flareup which began for about the last 3 to 4 weeks off and on that does respond to using her inhaler. He was seen here 1 week ago and diagnosed with an asthma flare left AMA as he was recommended to be admitted due to his hypoxemia. Spontaneously resolved reports no hemoptysis hematemesis hematochezia. Reports no no nausea or diarrhea but does have posttussive vomiting with every he has coughing spells. No known recent contact with the coronavirus. Not yet follow- up with the primary Care provider and is running low on his current asthma medications. Want to return to emergency department since he did leave AMA to ensure he did not need further admission and on the suspicion that he did actually have a pneumonia and want to be evaluated again for that diagnosis -: Gradual Severity scale (0 -10): 1 Associated Symptoms: denies other symptoms - Related Data Home Medications Medication Instructions Recorded Confirmed Last Taken Budesonide/Formoterol Fumarate 2 puff IH QDAY 09/17/21 09/17/21 1 Week Ago [Budesonide-Formoterol 160-4.5] ~09/10/21 Fluticasone [Flonase] 1 spray NS QDAY PRN 09/17/21 09/17/21 1 Week Ago ~09/10/21 Loratadine 10 mg PO QDAY 09/17/21 09/17/21 2 Days Ago ~09/15/21 Previous Rx's Medication Instructions Recorded Last Taken Type ALBUTEROL NEB's [Proventil 0.083% 3 ml IH Q6H PRN #75 ml 09/18/20 09/16/21 Rx NEBS] Albuterol Mdi (or & Nicu Only) 2 puff IH QID PRN #8.5 gram 03/02/21 09/16/21 Rx [ProAir HFA Inhaler] Benzonatate [Tessalon Perles] 100 mg PO Q8HR #30 capsule 03/02/21 09/16/21 Rx Montelukast [Singulair] 10 mg PO QPM #30 tablet 03/02/21 09/16/21 Rx ALBUTEROL NEB's [Proventil 0.083% 2.5 mg IH TID PRN #30 neb 09/29/21 Unknown Rx NEBS] Montelukast [Singulair] 10 mg PO QPM #14 tablet 09/29/21 Unknown Rx predniSONE [Deltasone] 50 mg PO QDAY #3 tab 09/29/21 Unknown Rx Allergies Allergy/AdvReac Type Severity Reaction Status Date / Time No Known Allergies Allergy Verified 09/28/21 18:51 ED Review of Systems ROS: Stated complaint: ASTHMA ATTACK Other details as noted in HPI Comment: All other systems reviewed and negative ED Past Medical Hx - Past Medical History Hx Asthma: Yes - Surgical History Additional Surgical History: Left shoulder, tonsilectomy, Adenoidectomy - Social History Smoking Status: Never Smoker Substance Use Type: None (Denies illicit drug use) - Medications Home Medications: Home Medications Medication Instructions Recorded Confirmed Last Taken Type ALBUTEROL NEB's [Proventil 0.083% 3 ml IH Q6H PRN #75 ml 09/18/20 09/17/21 09/16/21 Rx NEBS] Albuterol Mdi (or & Nicu Only) 2 puff IH QID PRN #8.5 gram 03/02/21 09/17/21 09/16/21 Rx [ProAir HFA Inhaler] Benzonatate [Tessalon Perles] 100 mg PO Q8HR #30 capsule 03/02/21 09/17/21 09/16/21 Rx Montelukast [Singulair] 10 mg PO QPM #30 tablet 03/02/21 09/17/21 09/16/21 Rx Budesonide/Formoterol Fumarate 2 puff IH QDAY 09/17/21 09/17/21 1 Week Ago History [Budesonide-Formoterol 160-4.5] ~09/10/21 Fluticasone [Flonase] 1 spray NS QDAY PRN 09/17/21 09/17/21 1 Week Ago History ~09/10/21 Loratadine 10 mg PO QDAY 09/17/21 09/17/21 2 Days Ago History ~09/15/21 ALBUTEROL NEB's [Proventil 0.083% 2.5 mg IH TID PRN #30 neb 09/29/21 Unknown Rx NEBS] Montelukast [Singulair] 10 mg PO QPM #14 tablet 09/29/21 Unknown Rx predniSONE [Deltasone] 50 mg PO QDAY #3 tab 09/29/21 Unknown Rx ED Physical Exam - General Limitations: No Limitations General appearance: alert, in no apparent distress - Head Head exam: Present: atraumatic, normocephalic - Eye Eye exam: Present: normal appearance, PERRL, EOMI Pupils: Present: normal accommodation - ENT ENT exam: Present: normal exam, normal orophraynx, mucous membranes moist, TM's normal bilaterally - Neck Neck exam: Present: normal inspection, full ROM - Respiratory Respiratory exam: Present: normal lung sounds bilaterally. Absent: respiratory distress, wheezes, rales, rhonchi, chest wall tenderness, decreased breath sounds - Cardiovascular Cardiovascular Exam: Present: regular rate, normal rhythm. Absent: systolic murmur, diastolic murmur, rubs, gallop - GI/Abdominal GI/Abdominal exam: Present: soft, normal bowel sounds - Rectal Rectal exam: Present: deferred - Extremities Exam Extremities exam: Present: normal inspection, normal capillary refill. Absent: tenderness, calf tenderness - Back Exam Back exam: Present: normal inspection - Neurological Exam Neurological exam: Present: alert, oriented X3 - Psychiatric Psychiatric exam: Present: normal affect, normal mood - Skin Skin exam: Present: warm, dry, intact, normal color. Absent: rash ED Course Vital Signs 09/28/21 09/29/21 18:50 01:07 Temperature 98.3 F Pulse Rate 84 Respiratory 20 14 Rate Blood Pressure 114/60 [Right] O2 Sat by Pulse 95 Oximetry ED Medical Decision Making - Radiology Data Radiology results: report reviewed [facility] [address] [place] [address] XRay Report Signed Patient: DENISE KEBEDE MR#: [id number] : 1995 Acct:[id number] Age/Sex: 26 / M ADM Date: 09/28/21 Loc: ED Attending Dr: Ordering Physician: URIEL CRISTOBAL Date of Service: 09/29/21 Procedure(s): XR chest routine 2V Accession Number(s): [id number] cc: URIEL CRISTOBAL Fluoro Time In Minutes: XR chest routine 2V INDICATION / CLINICAL INFORMATION: Asthma. COMPARISON: 09/17/2021 FINDINGS: SUPPORT DEVICES: None. HEART /PULMONARY VASCULATURE: No significant abnormality. LUNGS / PLEURA: No significant pulmonary or pleural abnormality. No pneumothorax. ADDITIONAL FINDINGS: No significant additional findings. IMPRESSION: 1. No acute findings. Signer Name: Jas Pritchett MD Signed: 09/29/2021 1:28 AM Workstation Name: [id number] Transcribed By: LEIDA Dictated By: JAS PRITCHETT MD Electronically Authenticated By: AJS PRITCHETT MD Signed Date/Time: 09/29/21127 DD/ 7 TD/TT: Print - Medical Decision Making No altered mental status, saddle respirations, belly breathing or other signs of impending ventilatory failure. No intubations or recent admissions to the hospital for asthma. Unlikely pneumonia, CHF, COPD, GERD Workup Review include a chest x-ray which was normal she also received steroids and albuterol Therapies: No therapy indicated present time patient is alert and oriented x3 speaking in full sentences stable vital signs and normal oxygenation Reassessment: Patient improved with albuterol and ipratropium in less than 3 hours. Disposition: Discharge home with return precautions. Advised to follow up with primary care physician within next 24-48 hours. Aside from this acute exacerbation patient has been well controlled on baseline home regimen. Rx short steroid course, albuterol, Singulair, Flovent Critical care attestation.: If time is entered above; I have spent that time in minutes in the direct care of this critically ill patient, excluding procedure time. ED Disposition Clinical Impression: Acute asthma exacerbation, Shortness of breath Disposition: HOME / SELF CARE / HOMELESS Is pt being admited?: No Does the pt Need Aspirin: No Condition: Stable Instructions: Asthma, Adult, Peak Flow Meter, How to Use a Metered Dose Inhaler, Form - Asthma Action Plan, Adult, How to Use a Nebulizer, Adult Referrals: PRIMARY CARE, [Primary Care Provider] - 3-5 Days
== END 2021-09-29 03:12 | disposition home or self-care (01) ==
LOC: ED 18:13
DX: J45.901 Unspecified asthma with (acute) exacerbation (principal); Z90.49 Acquired absence of other specified parts of digestive tract; Z79.899 Other long term (current) drug therapy
CPT/HCPCS: 71046; 99283